=== PATIENT | female | born 1945 | race Asian ===

== ENCOUNTER 2017-01-30 12:12 | Inpatient (IN) | payer OTHER ==
--- NOTE | 2017-01-30 12:30 | PDOC ---
Attending Attestation - HPI HPI: 01/30/17 13:12 71 year old female, with significant past medical history of Afib s/p ablation 10 years ago, who presents to the emergency room complaining of a fast heart beat and lightheadedness. She states that her pulse was in the 160s today, so she called Dr. Eastman who advised her to come into the ED. She notes that she experienced 1 syncopal episode, 3 days ago, where she became lightheaded and fell to the floor. Her was able to arouse her. Denies lightheadedness, dizziness, chest pain prior to or after the fall. Pt explains that she started seeing an non emergency services ambulance driver, Dr. Russ, 8 months ago who started her on Digoxin. When her pulse is low and she feels dizzy, the patient skips her digoxin dose. Denies chest pain, SOB. Denies fever, chills, nausea, vomiting. Ramp Service Man: Dr. Eastman Patient used Dr. Gunter as PMD, who is now retired. All of Dr. Gunter's patients are now seen by Dr. Gil. <Diana Chahal - Last Filed: 01/30/17 13:12> - Resident Resident Name: Jean Carlos Rivera - ED Attending Attestation I have performed the following: I have examined & evaluated the patient, The case was reviewed & discussed with the resident, I agree w/resident's findings & plan, Exceptions are as noted - Physicial Exam PE: GENERAL: Awake, alert, and fully oriented, in no acute distress HEAD: No signs of trauma EYES: PERRLA, EOMI, sclera anicteric, conjunctiva clear ENT: Auricles normal inspection, hearing grossly normal, nares patent, oropharynx clear without exudates. Moist mucosa NECK: Normal ROM, supple, no lymphadenopathy, JVD, or masses LUNGS: Breath sounds equal, clear to auscultation bilaterally. No wheezes, and no crackles HEART: Tachycardic, irregularly irregular. Normal S1 and S2. ABDOMEN: Soft, nontender, normoactive bowel sounds. No guarding, no rebound. No masses EXTREMITIES: Normal range of motion, no edema. No clubbing or cyanosis. No cords, erythema, or tenderness NEUROLOGICAL: Cranial nerves II through XII grossly intact. Normal speech, normal gait SKIN: Warm, Dry, normal turgor, no rashes or lesions noted. - Medical Decision Making 01/30/17 16:19 Case d/w Dr. Green, covering Dr. Shah. Patient sent by Dr. Eastman for history of afib, on digoxin, but has missed doses due to bradycardia. HR was as low as 30s at home measured by patient, and up to 170 today. Responded to digoxin well in ED. <Sheila Calloway - Last Filed: 01/30/17 16:42>
--- NOTE | 2017-01-30 12:43 | PDOC ---
History of Present Illness <Sheila Calloway - Last Filed: 01/30/17 16:17> <Radha Alejandre - Last Filed: 01/30/17 18:16> - General History Source: Patient Exam Limitations: No Limitations - History of Present Illness Initial Comments: Patient is a 71 year old female with history of afib, MVP, RA and CHF on Warfarin, metoprolol, digoxin and lasix presenting with tachycardia and dizziness. Patient skipped digoxin yesterday and today due to low pulse rate yesterday (58) and dizziness today. Patient's pulse increased to 160+ and Dr Eastman requested admission to [facility] with consult to Dr. Moreira. Patient states that on the way to the hospital her heart rate temporarily decreased to the 30s and then returned to the 160s. Patient has a 10+ history of rhythm controlled afib with a failed ablation 10 years ago. Patient was started on digoxin one year ago and has has been tolerating it well but recently has started having dizziness and low pulse rates resulting in skipped doses. Endorses losing consciousness 3 days ago. Denies headache, fever, chills , shortness of breath, chest pain, abdominal pain. Denies feeling dizzy in ED. PCP: Dr. Gunter Cardio: Dr. Eastman, Usha EP: Dr. Russ <Jean Carlos Rivera - Last Filed: 02/04/17 02:31> - General Chief Complaint: Lightheaded Stated Complaint: RAPID HEARTBEAT Time Seen by Provider: 01/30/17 12:27 Past History <Sheila Calloway - Last Filed: 01/30/17 16:17> <Radha Alejandre - Last Filed: 01/30/17 18:16> - Past Medical History Anemia: No Asthma: No Cancer: No Cardiac Disorders: Yes (mitral stenosis,a.f.) CVA: No COPD: No CHF: No Dementia: No Diabetes: No GI Disorders: No Disorders: No HTN: No Hypercholesterolemia: No Liver Disease: No Seizures: No Thyroid Disease: No - Surgical History Cholecystectomy: Yes - Suicide/Smoking/Psychosocial Hx Smoking Status: No Smoking History: Never smoked Have you smoked in the past 12 months: No Number of Cigarettes Smoked Daily: 0 Information on smoking cessation initiated: No Hx Alcohol Use: No Drug/Substance Use Hx: No Substance Use Type: None Hx Substance Use Treatment: No <Jean Carlos Rivera - Last Filed: 02/04/17 02:31> - Past Medical History Allergies/Adverse Reactions: Allergies Allergy/AdvReac Type Severity Reaction Status Date / Time No Known Drug Allergies Allergy Verified 01/30/17 12:18 Home Medications: Ambulatory Orders Folic Acid - 1 mg PO DAILY #0 tablet 02/01/12 Metoprolol Succinate [Toprol XL -] 100 mg PO BID #0 tab.sr.24h 02/01/12 Digoxin 250 mcg PO Q48H 01/30/17 Digoxin [Lanoxin] 125 mcg PO Q48H 01/30/17 Furosemide [Lasix -] 20 mg PO DAILY 01/30/17 Losartan Potassium [Cozaar -] 75 mg PO DAILY 01/30/17 Methotrexate Sodium [Methotrexate] 9 tab PO WEEKLY 01/30/17 Sulfasalazine [Sulfasalazine Dr] 500 mg PO BID 01/30/17 Travoprost [Travatan Z] 2.5 ml OP DAILY 01/30/17 Warfarin Na [Coumadin] 2.5 mg PO DAILY 01/30/17 Review of Systems - Review of Systems Able to Perform ROS?: Yes Comments:: GEN: Denies fever, chills; Endorses URI last month HEENTM: Denies sore throat, Changes in vision, Changes in hearing Respiratory: Denies Cough, Shortness of Breath Cardiac: Denies Chest Pain; Endorses Syncope 3 days ago and presyncope today ABD/GI: Denies Abdominal Pain, Nausea, Vomiting, Diarrhea, Constipation : Denies Dysuria Musculoskeletal: Denies muscle or joint pain Integumentary: Denies diaphoresis, rashes, bruises Neurological: Endorses NIEVES, dizziness; Denies weakness All Other Systems Reviewed and Negative Is the patient limited Maltese proficient: No <Jean Carlos Rivera - Last Filed: 02/04/17 02:31> *Physical Exam - Vital Signs Last Vital Signs Temp Pulse Resp BP Pulse Ox 97.8 F 105 H 18 125/76 100 01/30/17 12:16 01/30/17 14:13 01/30/17 14:13 01/30/17 14:13 01/30/17 14:13 <Sheila Calloway - Last Filed: 01/30/17 16:17> - Vital Signs Last Vital Signs Temp Pulse Resp BP Pulse Ox 97.8 F 84 14 124/91 98 01/30/17 12:16 01/30/17 17:15 01/30/17 17:15 01/30/17 17:15 01/30/17 17:15 <Radha Alejandre - Last Filed: 01/30/17 18:16> - Vital Signs Last Vital Signs Temp Pulse Resp BP Pulse Ox 97.8 F 130 H 18 133/87 100 01/30/17 12:16 01/30/17 12:16 01/30/17 12:16 01/30/17 12:16 01/30/17 12:16 - Physical Exam Comments: GENERAL: Nourished, Appropriately dressed, AAOx3, NAD HEAD: NCAT EYES: PERRLA, EOMI, sclera anicteric, mild conjunctival injections R>L ENT: hearing grossly normal, nares patent, no congestion NECK: Supple, Normal ROM, no LAD, JVD, or masses RESP: Speaking in full sentences, Symmetrical chest expansion, no respiratory distress, lungs CTAB HEART: tachycardic with an irregular rhythm, normal S1-S2, no MRG, peripheral pulses equal b/l ABDOMEN: Soft, NTND, no guarding, no rebound. EXTREMITIES: Normal inspection, Normal ROM NEUROLOGICAL: CN II-XII grossly intact. Normal speech, no focal sensorimotor deficits SKIN: Warm, Dry, normal turgor, no rashes or lesions noted. <Jean Carlos Rivera - Last Filed: 02/04/17 02:31> ED Treatment Course - LABORATORY CBC & Chemistry Diagram: 01/30/17 13:40 01/30/17 13:40 - ADDITIONAL ORDERS Additional order review: Laboratory Results 01/30/17 01/30/17 13:40 13:40 PT with INR 28.80 H INR 2.55 H Sodium 142 Potassium 4.7 Chloride 105 Carbon Dioxide 29 Anion Gap 8 BUN 12 Creatinine 0.7 Creat Clearance w eGFR > 60 Random Glucose 83 Calcium 9.7 Total Bilirubin 0.6 AST 34 D ALT 33 D Alkaline Phosphatase 83 Creatine Kinase 118 Troponin I 0.04 Total Protein 8.3 H Albumin 4.3 Digoxin 0.2324 L 01/30/17 13:40 RBC 4.97 MCV 84.8 MCHC 31.4 L RDW 17.3 H MPV 8.4 - Medications Given in the ED: ED Medications Discontinued Medications Generic Name Dose Route Start Last Admin Trade Name Freq PRN Reason Stop Dose Admin Digoxin 0.5 mg 01/30/17 13:24 01/30/17 13:40 Lanoxin Injection - IVPUSH 01/30/17 13:25 0.5 mg ONCE ONE Administration <Sheila Calloway - Last Filed: 01/30/17 16:17> - LABORATORY CBC & Chemistry Diagram: 01/30/17 13:40 01/30/17 13:40 - ADDITIONAL ORDERS Additional order review: Laboratory Results 01/30/17 01/30/17 13:40 13:40 PT with INR 28.80 H INR 2.55 H Sodium 142 Potassium 4.7 Chloride 105 Carbon Dioxide 29 Anion Gap 8 BUN 12 Creatinine 0.7 Creat Clearance w eGFR > 60 Random Glucose 83 Calcium 9.7 Total Bilirubin 0.6 AST 34 D ALT 33 D Alkaline Phosphatase 83 Creatine Kinase 118 Troponin I 0.04 Total Protein 8.3 H Albumin 4.3 Digoxin 0.2324 L 01/30/17 13:40 RBC 4.97 MCV 84.8 MCHC 31.4 L RDW 17.3 H MPV 8.4 - Medications Given in the ED: ED Medications Discontinued Medications Generic Name Dose Route Start Last Admin Trade Name Freq PRN Reason Stop Dose Admin Digoxin 0.5 mg 01/30/17 13:24 01/30/17 13:40 Lanoxin Injection - IVPUSH 01/30/17 13:25 0.5 mg ONCE ONE Administration <Radha Alejandre - Last Filed: 01/30/17 18:16> - LABORATORY CBC & Chemistry Diagram: 02/03/17 05:18 02/03/17 05:18 <Jean Carlos Rivera - Last Filed: 02/04/17 02:31> Medical Decision Making - Medical Decision Making 01/30/17 18:16 Dr. Moreira was paged and notified via phone service. <Radha Alejandre - Last Filed: 01/30/17 18:16> - Medical Decision Making 71 year old female presenting with atrial fibrillation with rapid ventricular response. History of failed ablation 10 years ago. Recently been experiencing bradycardia and presyncope causing her to skip doses of digoxin doses. Today HR in the 160+ sent to ED for admission and cardiac evaluation. Ddx includes but is not limited to worsening afib, CHF, sub therapeutic drug levels, SSS/tachycardia-bradycardia syndrome. Plan EKG, CXR Rate control CBC, CMP Coagulation Profile Cardiac enzymes digoxin level +/- admission Consult cardiology (Lillie) Monitor and reassess EKG: flutter waves with rapid and variable ventricular response (150), alternating 3:1 and 2:1 01/30/17 13:18 Patient refusing Diltiazem. states her pulse normally drops and she doesn't want to take any medication. Agrees to receiving her dose of Digoxin. Patient given a digoxin loading dose of 0.5 mg 01/30/17 13:42 Patient responded well to Digoxin. HR down to 100 with 3:1 conduction of flutter waves, BP: 121/90 01/30/17 14:08 CBC WBC 6.9 K/mm3 (4.0-10.0) 01/30/17 13:40 RBC 4.97 M/mm3 (3.60-5.2) 01/30/17 13:40 Hgb 13.2 GM/dL (10.7-15.3) 01/30/17 13:40 Hct 42.1 % (32.4-45.2) 01/30/17 13:40 MCV 84.8 fl (80-96) 01/30/17 13:40 MCH 26.6 pg (25.7-33.7) 01/30/17 13:40 MCHC 31.4 g/dl (32.0-36.0) L 01/30/17 13:40 RDW 17.3 % (11.6-15.6) H 01/30/17 13:40 Plt Count 251 K/MM3 (134-434) 01/30/17 13:40 MPV 8.4 fl (7.5-11.1) 01/30/17 13:40 Reviewed, Grossly within normal limits. 01/30/17 14:37 CMP Sodium 142 mmol/L (136-145) 01/30/17 13:40 Potassium 4.7 mmol/L (3.5-5.1) 01/30/17 13:40 Chloride 105 mmol/L (98-107) 01/30/17 13:40 Carbon Dioxide 29 mmol/L (21-32) 01/30/17 13:40 Anion Gap 8 (8-16) 01/30/17 13:40 BUN 12 mg/dL (7-18) 01/30/17 13:40 Creatinine 0.7 mg/dL (0.55-1.02) 01/30/17 13:40 Creat Clearance w eGFR > 60 (>60) 01/30/17 13:40 Random Glucose 83 mg/dL (74-106) 01/30/17 13:40 Calcium 9.7 mg/dL (8.5-10.1) 01/30/17 13:40 Total Bilirubin 0.6 mg/dL (0.2-1.0) 01/30/17 13:40 AST 34 U/L (15-37) D 01/30/17 13:40 ALT 33 U/L (12-78) D 01/30/17 13:40 Alkaline Phosphatase 83 U/L (45-117) 01/30/17 13:40 Creatine Kinase 118 IU/L (26-192) 01/30/17 13:40 Troponin I 0.04 ng/ml (0.00-0.05) 01/30/17 13:40 Total Protein 8.3 g/dl (6.4-8.2) H 01/30/17 13:40 Albumin 4.3 g/dl (3.4-5.0) 01/30/17 13:40 Reviewed, Grossly within normal limits. Troponin(-) 01/30/17 14:42 Laboratory Tests 01/30/17 13:40 Digoxin 0.2324 L Subtherapeutic digoxin level consistent with skipped doses 01/30/17 14:47 Laboratory Tests 01/30/17 13:40 PT with INR 28.80 H INR 2.55 H Therapeutic INR. 01/30/17 15:[address] Moreira regarding patient. He requested admission to Tele Obs for evaluation for Thacy/Manpreet - Put consult in for Dr. Eastman so he will be alerted. 01/30/17 15:08 Put in call to Dr. Gil ([phone]) requesting callback 01/30/17 16:21 Dr. Calloway spoke with Dr. Green (covering for Dr. Gil) who accepted admission. Patient admitted by Dr. Calloway. 01/30/17 18:10 Patient had a 7-8s pause in her heart beat followed by a 2 second pause and then resumed the previous rhythm Patient complained that she became dizzy External pads were placed Put in a call to Dr. Moreira Spoke with Dr. Jones who agreed with placing pads and reqyuested admission to ICU Dr. Jones called back, he feels this was an isolated event but may request patient tranfer to tertiary hospital with a dedicated CICU He is going to discuss with Dr. Eastman and call back <Jean Carlos Rivrea - Last Filed: 02/04/17 02:31> *DC/Admit/Observation/Transfer - Discharge Dispostion Admit: Yes <Sheila Calloway - Last Filed: 01/30/17 16:17> <Radha Alejandre - Last Filed: 01/30/17 18:16> <Jean Carlos Rivera - Last Filed: 02/04/17 02:31> Diagnosis at time of Disposition: Atrial fibrillation and flutter - Discharge Dispostion Condition at time of disposition: Stable - Referrals
[2017-01-30] MEDS ORDERED: dilTIAZem HCL 125 MG/25 ML - 25 ML VIAL ONE (13:09)
[2017-01-30] MEDS ORDERED: DIGOXIN 0.5 MG/2 ML AMPUL IVPUSH ONE (13:24)
[2017-01-30] MEDS ORDERED: DIGOXIN 0.5 MG/2 ML AMPUL ONE (13:27)
[2017-01-30 13:51] LABS: MCH 26.6 pg (25.7-33.7); MCHC 31.4 g/dl (32.0-36.0); MEAN CELL VOLUME 84.8 fl (80-96); MEAN PLT VOLUME 8.4 fl (7.5-11.1); PLATELET COUNT 251 K/MM3 (134-434); RDW 17.3 % (11.6-15.6); WHITE BLOOD COUNT 6.9 K/mm3 (4.0-10.0)
[2017-01-30 14:13] LABS: INR 2.55 (0.82-1.09); PROTHROMBIN TIME (PATIENT) 28.8 SEC (9.98-11.88)
[2017-01-30 14:17] LABS: ALBUMIN 4.3 g/dl (3.4-5.0); ANION GAP 8 (8-16); BILIRUBIN,TOTAL 0.6 mg/dL (0.2-1.0); CALCIUM 9.7 mg/dL (8.5-10.1); CO2 29 mmol/L (21-32); CREATININE 0.7 mg/dL (0.55-1.02); GLUCOSE,RANDOM 83 mg/dL (74-106); SGOT/AST 34 U/L (15-37); SGPT/ALT 33 U/L (12-78); TOT PROT 8.3 g/dl (6.4-8.2)
[2017-01-30 14:29] LABS: ALK PHOS 83 U/L (45-117); CPK 118 IU/L (26-192); DIGOXIN LEVEL 0.2324 ng/ml (0.8-2.0); TROPONIN I 0.04 ng/ml (0.00-0.05)
--- NOTE | 2017-01-30 20:01 | CON.CARD ---
Cardiology Consult (text) - Consultation Consultation Note: Consult for Dr. 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 Admit to ICU for continued telemetry. 2. Transcutaneous PPM if needed, atropine at bedside 3. Echo 4. TSH 5. EP consultation with Dr. Benitez 6. If patient continues to have pauses > 4.5 seconds or if repeated pauses >3 seconds, can transfer to CCU at [facility] Above d/w Dr. Orourke and patient.
[2017-01-30 21:02] VITALS: BMI 23.1
[2017-01-30] MEDS ORDERED: PNEUMOC 13-VAL CONJ-DIP CRM/PF 0.5 ML DISP.SYRIN IM ONE (21:02)
[2017-01-30] MEDS ORDERED: FLU VACCINE QUAD 60 MCG/0.5 ML (MDV 17-18) IM ONE (21:02)
--- NOTE | 2017-01-30 22:56 | CONSULT ---
Consult - text type - Consultation Consultation Note: PULM/CCM Pt seen and examined in the ICU CC: dizziness HPI: Briefly Ms Narayanan is a 71 year old female, with past medical history significant for Afib s/p failed ablation 10 years ago, now on Digoxin and anticoagulation, who presented to the emergency room complaining of a fast heart beat and lightheadedness. Relates that her pulse was in the 160s today, so she called Dr. Eastman ---> ED. Also relates she had 1 syncopal episode w/ o associated chest pain, 3 days ago, where she became lightheaded and fell to the floor, she was not seen at that time. Had no complaints after event. . Pt explains that she started seeing an hybrid car mechanic, Dr. Russ, 8 months ago who started her on Digoxin. States that she skipped dose of digoin because pulse has been low and the above events. Currently denies chest pain, SOB. Denies fever, chills, nausea, vomiting. In ED normothermic, normotensive. 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 Pacer pad placed. Atropine to be at bedside. Plan to adjust meds as necessary in am. On arrival in ICU awake, alert, hemodynamcially stable, no complaints. Pt remains in Afib with HR 58-74. No further pauses. - Past Medical History Anemia: No Asthma: No Cancer: No Cardiac Disorders: Yes (mitral stenosis,a.f.) CVA: No COPD: No CHF: No Dementia: No Diabetes: No GI Disorders: No Disorders: No HTN: No Hypercholesterolemia: No Liver Disease: No Seizures: No Thyroid Disease: No - Surgical History Cholecystectomy: Yes - Suicide/Smoking/Psychosocial Hx Smoking Status: No Smoking History: Never smoked Have you smoked in the past 12 months: No Number of Cigarettes Smoked Daily: 0 Information on smoking cessation initiated: No Hx Alcohol Use: No Drug/Substance Use Hx: No Substance Use Type: None Hx Substance Use Treatment: No <Jean Carlos Rivera - Last Filed: 01/30/17 19:15> - Past Medical History Allergies/Adverse Reactions: Allergies Allergy/AdvReac Type Severity Reaction Status Date / Time No Known Drug Allergies Allergy Verified 01/30/17 12:18 Home Medications: Ambulatory Orders Folic Acid - 1 mg PO DAILY #0 tablet 02/01/12 Metoprolol Succinate [Toprol XL -] 100 mg PO BID #0 tab.sr.24h 02/01/12 Digoxin 250 mcg PO Q48H 01/30/17 Digoxin [Lanoxin] 125 mcg PO Q48H 01/30/17 Furosemide [Lasix -] 20 mg PO DAILY 01/30/17 Losartan Potassium [Cozaar -] 75 mg PO DAILY 01/30/17 Methotrexate Sodium [Methotrexate] 9 tab PO WEEKLY 01/30/17 Sulfasalazine [Sulfas[address] Dr] 500 mg PO BID 01/30/17 Travoprost [Travatan Z] 2.5 ml OP DAILY 01/30/17 Warfarin Na [Coumadin] 2.5 mg PO DAILY 01/30/17 Review of Systems - Review of Systems Able to Perform ROS?: Yes Comments:: GEN: Denies fever, chills; Endorses URI last month HEENTM: Denies sore throat, Changes in vision, Changes in hearing Respiratory: Denies Cough, Shortness of Breath Cardiac: Denies Chest Pain; Endorses Syncope 3 days ago and presyncope today ABD/GI: Denies Abdominal Pain, Nausea, Vomiting, Diarrhea, Constipation : Denies Dysuria Musculoskeletal: Denies muscle or joint pain Integumentary: Denies diaphoresis, rashes, bruises Neurological: Endorses NIEVES, dizziness; Denies weakness as per HPI All Other Systems Reviewed and Negative 01/30/17 13:40 01/30/17 13:40 INR, PTT INR 2.55 (0.82-1.09) H 01/30/17 13:40 Dig o.2 A/P 71 y/o woman chronic afib on dig, presents with afib RVR, low dig level, received 0.5 of dig in ED had brief pauses without hemodyamic changes now rate controlled without current symptoms P/ - Admit to ICU for continued telemetry. - Transcutaneous PPM if needed, atropine at bedside -TTE -check TSH, replete electrolytes - to have EP consultation with Dr. Benitez - TCP and transfer to tertiary if becomes unstable - heparin gtt or restart coumadin when INR < 2.5 -if stable overnight tele in am -cardiac diet -scd, no indication for GI prophy Armand Charlotte ACNP [id number]
--- NOTE | 2017-01-31 08:46 | PN ---
Progress Note (short form) - Note Progress Note: Patient seen and examined in the ICU. Awake and alert. No CP or SOB. No recurrent pauses. Intake & Output 01/28/17 01/29/17 01/30/17 01/31/17 23:59 23:59 23:59 23:59 Intake Total 240 Balance 240 Weight 126 lb 12.8 oz 126 lb 8 oz Last Vital Signs Temp Pulse Resp BP Pulse Ox 98.1 F 65 15 128/89 98 01/31/17 02:00 01/31/17 02:00 01/31/17 02:00 01/31/17 02:00 01/30/17 21:00 GENERAL: Awake, alert, and fully oriented, in no acute distress HEAD: No signs of trauma EYES: PERRLA, EOMI, sclera anicteric, conjunctiva clear ENT: hearing grossly normal, nares patent, oropharynx clear without exudates. Moist mucosa NECK: Normal ROM, supple, no lymphadenopathy, JVD, or masses LUNGS: Breath sounds equal, clear to auscultation bilaterally. No wheezes, and no crackles HEART: Tachycardic, irregularly irregular. Normal S1 and S2. ABDOMEN: Soft, nontender, normoactive bowel sounds. No guarding, no rebound. No masses EXTREMITIES: Normal range of motion, no edema. No clubbing or cyanosis. No cords, erythema, or tenderness NEUROLOGICAL: Cranial nerves II through XII grossly intact. Normal speech, normal gait SKIN: Warm, Dry, normal turgor, no rashes or lesions noted. Laboratory Results - last 24 hr 01/30/17 01/30/17 01/30/17 13:40 13:40 13:40 WBC 6.9 RBC 4.97 Hgb 13.2 Hct 42.1 MCV 84.8 MCH 26.6 MCHC 31.4 L RDW 17.3 H Plt Count 251 MPV 8.4 PT with INR 28.80 H INR 2.55 H Sodium 142 Potassium 4.7 Chloride 105 Carbon Dioxide 29 Anion Gap 8 BUN 12 Creatinine 0.7 Creat Clearance w eGFR > 60 Random Glucose 83 Calcium 9.7 Total Bilirubin 0.6 AST 34 D ALT 33 D Alkaline Phosphatase 83 Creatine Kinase 118 Troponin I 0.04 Total Protein 8.3 H Albumin 4.3 TSH Digoxin 0.2324 L 01/31/17 05:10 WBC RBC Hgb Hct MCV MCH MCHC RDW Plt Count MPV PT with INR INR Sodium Potassium Chloride Carbon Dioxide Anion Gap BUN Creatinine Creat Clearance w eGFR Random Glucose Calcium Total Bilirubin AST ALT Alkaline Phosphatase Creatine Kinase Troponin I Total Protein Albumin TSH 7.02 H D Digoxin IMP: 7 seconds pause Chronic AFib R/O OSAS Monitor HR O2 as needed May benefit from sleep screen Transcutaneous PPM if needed, atropine at bedside Dr Sparrow
--- NOTE | 2017-01-31 08:53 | PN ---
Progress Note, Physician Chief Complaint: Alert and oriented, no distress TELE: AF with average rates 90-115. Rare short spikes to 130s, no pauses > 3 seconds overnight TSH is 7 - Objective Vital Signs: Vital Signs Temperature 98.1 F 01/31/17 02:00 Pulse Rate 65 01/31/17 02:00 Respiratory Rate 15 01/31/17 02:00 Blood Pressure 128/89 01/31/17 02:00 O2 Sat by Pulse Oximetry (%) 98 01/30/17 21:00 Constitutional: Yes: No Distress Eyes: Yes: Conjunctiva Clear Cardiovascular: Yes: Pulse Irregular Respiratory: Yes: CTA Bilaterally Gastrointestinal: Yes: Soft Edema: No Neurological: Yes: Alert ...Motor Strength: WNL Labs: INR, PTT INR 2.55 (0.82-1.09) H 01/30/17 13:40 Laboratory Tests 01/30/17 01/31/17 13:40 05:10 WBC 6.9 Hgb 13.2 Plt Count 251 TSH 7.02 H D - ....Imaging EKG: Image Reviewed Assessment/Plan IMP: Chronic AF on AC, s/p failed ablation 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 Continue tele in ICU 2. Transcutaneous pacer attached, not required overnight. 3. Address thyroid status 4. Echo in AM 5. EP evaluation ordered, may need PPM.
--- NOTE | 2017-01-31 09:21 | CONS ---
DATE OF CONSULTATION: 01/30/2017 COVERAGE FOR: Giovani Eastman MD REQUESTED BY: ER physician, Dr. Calloway, for atrial fibrillation with rapid ventricular response. The patient is a 71-year-old woman with a past medical history of chronic hypertension, chronic atrial fibrillation, status post failed ablation, maintained on Coumadin, rheumatoid arthritis who presents to the emergency room for evaluation of elevated heart rate. The patient's history of present illness begins around January 27, when she began to feel occasional lightheadedness and describes an episode of presyncope at home. She also describes low heart rates in the morning-time, ranging from 50 to 60 beats/min, which prompted her to hold her digoxin for 2 days. 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 She had recently seen Electrophysiology and started on digoxin several months ago, which she reports initially provided much better control of her atrial fibrillation. Previously, she was on metoprolol alone, which was not effective as monotherapy, according to her. Today, she also felt lightheaded and dizzy this morning and her home pulse reading was transiently in the 30s. Initially in the ER, she was found to be in atrial fibrillation with rapid ventricular response and was given digoxin 0.5 mg IV x1 dose after her digoxin level was found to be low. By ER report, after a period of time, she developed a 7-second pause, followed by atrial fibrillation again with rapid ventricular response. I was called to evaluate her after the pause. I came to the ER to evaluate the patient, where she was seen and examined and was in no acute distress, alert and oriented. Heart rate currently ranging between 90 and 115 beats/min with no pauses during my examination. She denies chest pain, shortness of breath. She does have palpitations and occasional lightheadedness, as described above. She had 1 episode of presyncope on January 27. She denies edema or heart failure symptoms. She denies history of myocardial infarction or previous revascularization. PAST MEDICAL/SURGICAL HISTORY: Previous , rheumatoid arthritis, hypertension. She has no known drug allergies. HOME MEDICATIONS: Digoxin 0.25 daily; warfarin 2.5 daily; Travatan; sulfasalazine; Toprol-XL 100 b.i.d.; methotrexate; Cozaar 75 mg daily; Lasix 20 mg daily; folic acid. FAMILY HISTORY: No early CAD or sudden cardiac . SOCIAL HISTORY: She lives with . Nonsmoker. 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 PHYSICAL EXAMINATION: General: Alert and oriented. Vital Signs: Temperature 97.8, pulse 104 in atrial fibrillation, blood pressure 138/79, O2 saturation 99 on room air. HEENT: Anicteric. Neck: No bruits, no JVD. Heart: S1, S2, irregular. No murmurs. Chest: Clear. No rales. Abdomen: Soft. Extremities: No edema. Chest x-ray showed no infiltrate. EKG showed atrial flutter at 122 beats/min. CBC: White count 6.9, hematocrit 42.1, platelets 251. INR 2.55. Sodium 142, potassium 4.7, creatinine 0.7. LFTs normal. Toxicology screen, digoxin level was 0.2. IMPRESSION: 1. Chronic atrial fibrillation, on anticoagulation, status post failed ablation. 2. Suspected tachycardia/bradycardia syndrome. 3. A 7-second pause after receiving intravenous digoxin 0.5 mg. RECOMMENDATIONS: 1. Admit to ICU for continued telemetry. 2. Would allow heart rate to run slightly elevated overnight and use small doses of Lopressor as needed. 3. Transcutaneous pacemaker if needed, atropine at bedside. 4. Echocardiogram. 5. Check TSH. 6. EP consultation with Dr. Patrick Benitez for probable/possible pacemaker on Wednesday. 7. If the patient continues to have pauses greater than 4.5 seconds or if repeated pauses greater than 3 seconds and symptomatic, can transfer to a CCU setting at [facility] on an emergent basis. Above plan was discussed with her primary canvas products sales representative, Dr. Orourke/Dr. Eastman, and with the patient. Thank you for the consultation. KESHAWN GARIBAY M.D. [id number]
--- NOTE | 2017-01-31 11:05 | EKG ---
Test Reason : Blood Pressure : / mmHG Vent. Rate : 122 BPM Atrial Rate : 317 BPM P-R Int : 000 ms QRS Dur : 084 ms QT Int : 298 ms P-R-T Axes : 000 031 192 degrees QTc Int : 424 ms ATRIAL FLUTTER WITH VARIABLE A-V BLOCK ABNORMAL ECG WHEN COMPARED WITH ECG OF 30-JAN-2012 09:56, ATRIAL FLUTTER HAS REPLACED ATRIAL FIBRILLATION INVERTED T WAVES HAVE REPLACED NONSPECIFIC T WAVE ABNORMALITY IN LATERAL LEADS Confirmed by KESHAWN GARIBAY MD ([id number]) on 01/31/2017 11:05:24 AM Referred By: Confirmed By:KESHAWN GARIBAY MD
[2017-01-31] MEDS ORDERED: ACETAMINOPHEN 325 MG TABLET (FP) PO PRN (11:07)
--- NOTE | 2017-01-31 11:11 | HP ---
Admitting History and Physical - Primary Care Physician PCP: Jia Shah - Admission History of Present Illness: Patient is a 71 year old female with history of afib, MVP, RA and CHF on Warfarin, metoprolol, digoxin and lasix presenting with tachycardia and dizziness. Patient skipped digoxin yesterday and today due to low pulse rate yesterday (58) and dizziness today. Patient's pulse increased to 160+ and Dr Eastman requested admission to tele with consult to Dr. Moreira. Patient has a 10+ history of rhythm controlled afib with a failed ablation 10 years ago. Patient was started on digoxin one year ago and has has been tolerating it well but recently has started having dizziness and low pulse rates resulting in skipped doses. Denies headache, fever, chills, shortness of breath, chest pain, abdominal pain. Denies feeling dizzy in ED. PCP: Dr. Gunter Cardio: Dr. Raiaz V EP: Dr. Russ pt devoled > 7 sec pause after getting digoxin in er pt admitted to icu case discussed with er physician last night chart reviewed pt seen / examined in icu today at bedside pt at present comfotable denies cp/sob. concerned about hrate no abd pain. denies fever/ chills denies headche/ dizziness no u/b trouble History Source: Patient, Family Member Limitations to Obtaining History: No Limitations - Past Medical History ...: No - Smoking History Smoking history: Never smoked Have you smoked in the past 12 months: No Aproximately how many cigarettes per day: 0 - Alcohol/Substance Use Hx Alcohol Use: No Home Medications - Allergies Allergies/Adverse Reactions: Allergies Allergy/AdvReac Type Severity Reaction Status Date / Time No Known Drug Allergies Allergy Verified 01/30/17 12:18 - Home Medications Home Medications: Ambulatory Orders Folic Acid - 1 mg PO DAILY #0 tablet 02/01/12 Metoprolol Succinate [Toprol XL -] 100 mg PO BID #0 tab.sr.24h 02/01/12 Digoxin 250 mcg PO Q48H 01/30/17 Digoxin [Lanoxin] 125 mcg PO Q48H 01/30/17 Furosemide [Lasix -] 20 mg PO DAILY 01/30/17 Losartan Potassium [Cozaar -] 75 mg PO DAILY 01/30/17 Methotrexate Sodium [Methotrexate] 9 tab PO WEEKLY 01/30/17 Sulfasalazine [Sulfas[address]azine Dr] 500 mg PO BID 01/30/17 Travoprost [Travatan Z] 2.5 ml OP DAILY 01/30/17 Warfarin Na [Coumadin] 2.5 mg PO DAILY 01/30/17 Family Disease History - Family Disease History Family History: Unremarkable Review of Systems Findings/Remarks: see [place] Physical Examination Vital Signs: Vital Signs Temperature 98 F 01/31/17 10:57 Pulse Rate 84 01/31/17 10:57 Respiratory Rate 21 01/31/17 10:57 Blood Pressure 120/61 01/31/17 10:57 O2 Sat by Pulse Oximetry (%) 98 01/30/17 21:00 Constitutional: Yes: No Distress, Calm Eyes: Yes: Conjunctiva Clear HENT: Yes: WNL Neck: Yes: Supple Cardiovascular: Yes: Pulse Irregular Respiratory: Yes: CTA Bilaterally Gastrointestinal: Yes: Normal Bowel Sounds, Soft Edema: No Neurological: Yes: WNL Psychiatric: Yes: Alert Imaging - Results Chest X-ray: Report Reviewed EKG: Report Reviewed Problem List - Problems (1) Atrial fibrillation and flutter Code(s): I48.91 - UNSPECIFIED ATRIAL FIBRILLATION I48.92 - UNSPECIFIED ATRIAL FLUTTER (2) Rheumatoid arteritis Code(s): I00 - RHEUMATIC FEVER WITHOUT HEART INVOLVEMENT (3) HTN (hypertension) Code(s): I10 - ESSENTIAL (PRIMARY) HYPERTENSION (4) Glaucoma Code(s): H40.9 - UNSPECIFIED GLAUCOMA (5) Tachy-deandre syndrome Code(s): I49.5 - SICK SINUS SYNDROME Assessment/Plan Discussed in detail with pt/ continue close monitoring in icu. cardiology consult noted/ appreciated rmeds reviewed hold b tunde for now will follow cc time [address] Green-- Coverage Dr. Gil.
[2017-01-31] MEDS: WARFARIN NA 2.5 MG TABLET (FP) PO SCH (17:55)
[2017-01-31] MEDS: LATANOPROST 0.005% OPHTH SOLN 2.5ML BOTTLE OU SCH (21:10)
[2017-01-31] MEDS: MUPIROCIN 2% TOPICAL OINTMENT FOR DECOLONIZATION NS SCH (21:11)
[2017-01-31] MEDS: CHLORHEXIDINE GLUCONATE 4% CLEANSER FOR DECOLONIZATION TP SCH (21:14)
[2017-02-01 06:02] LABS: BASOPHIL 0.8 % (0-2.0); EOSINOPHIL 1.5 % (0-4.5); MCH 27.4 pg (25.7-33.7); MCHC 32.6 g/dl (32.0-36.0); MEAN PLT VOLUME 8.4 fl (7.5-11.1); NEUTROPHILS 48.7 % (42.8-82.8); PLATELET COUNT 245 K/MM3 (134-434); WHITE BLOOD COUNT 6.5 K/mm3 (4.0-10.0)
[2017-02-01 06:10] LABS: INR 1.65 (0.82-1.09); PROTHROMBIN TIME (PATIENT) 18.6 SEC (9.98-11.88)
[2017-02-01 06:38] LABS: ALBUMIN 3.5 g/dl (3.4-5.0); ANION GAP 7 (8-16); CALCIUM 8.8 mg/dL (8.5-10.1); CO2 30 mmol/L (21-32); CREATININE 0.6 mg/dL (0.55-1.02); GLUCOSE,RANDOM 84 mg/dL (74-106); SGOT/AST 20 U/L (15-37); SGPT/ALT 24 U/L (12-78)
[2017-02-01 06:40] LABS: ALK PHOS 69 U/L (45-117); BILIRUBIN,TOTAL 0.7 mg/dL (0.2-1.0)
--- NOTE | 2017-02-01 07:16 | PN ---
Physical Exam: SUBJECTIVE: Patient seen and examined by me this AM - No major overnight events. Pt denies CP, NIEVES/vision changes, fever/chills, dyspnea, N/V, LE edema. Endorses palpitations and SOB overnight when woken up by nursing staff. However, no other complaints. - Pt intermittently tachy to 140s systolic in AM, w/ persistent Afib/Aflutter. - Pt started on Heparin gtt given subtherapeutic INR (1.65). Toprol xl restarted per her medical lab technician, Dr. Eastman OBJECTIVE: Vital Signs Intake & Output 01/29/17 01/30/17 01/31/17 02/01/17 23:59 23:59 23:59 23:59 Intake Total 940 200 Balance 940 200 Weight 57.516 kg 57.379 kg 57.107 kg Period Temp Pulse Resp BP Sys/Frazier Pulse Ox Last 24 Hr 97.7 F-98.6 F 67-92 18-22 111-133/56-82 GENERAL: The patient is awake, alert, and fully oriented, in no acute distress. HEAD: Normal with no signs of trauma. EYES: PERRL, extraocular movements intact, sclera anicteric, conjunctiva clear. No ptosis. ENT: Ears normal, nares patent, oropharynx clear without exudates, moist mucous membranes. NECK: Trachea midline, supple. LUNGS: Breath sounds equal, clear to auscultation bilaterally, no wheezes, no crackles, no accessory muscle use. HEART: Tachcardic, irregularly irregular, S1, S2 without murmur, rub or gallop. ABDOMEN: Soft, nontender, nondistended, normoactive bowel sounds, no guarding, no rebound, no hepatosplenomegaly, no masses. EXTREMITIES: 2+ pulses, warm, well-perfused, no edema. NEUROLOGICAL: Cranial nerves II through XII grossly intact. Normal speech, gait not observed. Laboratory Results - last 24 hr CBC, BMP 02/01/17 05:00 02/01/17 05:00 01/31/17 02/01/17 02/01/17 05:10 05:00 05:00 WBC 6.5 RBC 4.64 Hgb 12.7 Hct 38.9 MCV 84.0 MCH 27.4 MCHC 32.6 RDW 17.0 H Plt Count 245 MPV 8.4 Neutrophils % 48.7 D Lymphocytes % 40.1 H D Monocytes % 8.9 Eosinophils % 1.5 D Basophils % 0.8 PT with INR 18.60 H INR 1.65 H D Sodium Potassium Chloride Carbon Dioxide Anion Gap BUN Creatinine Creat Clearance w eGFR Random Glucose Calcium Magnesium Total Bilirubin AST ALT Alkaline Phosphatase Total Protein Albumin TSH 7.02 H D 02/01/17 05:00 WBC RBC Hgb Hct MCV MCH MCHC RDW Plt Count MPV Neutrophils % Lymphocytes % Monocytes % Eosinophils % Basophils % PT with INR INR Sodium 144 Potassium 4.8 Chloride 107 Carbon Dioxide 30 Anion Gap 7 L BUN 15 D Creatinine 0.6 Creat Clearance w eGFR > 60 Random Glucose 84 Calcium 8.8 Magnesium 2.0 Total Bilirubin 0.7 AST 20 D ALT 24 D Alkaline Phosphatase 69 Total Protein 7.0 Albumin 3.5 TSH Active Medications Generic Name Dose Route Start Last Admin Trade Name Freq PRN Reason Stop Dose Admin Acetaminophen 650 mg 01/31/17 11:07 Tylenol - PO Q6H PRN FEVER OR PAIN Chlorhexidine Gluconate 1 applic 01/31/17 22:00 01/31/17 21:14 Hibiclens For Decolonization - TP 1 applic HS JEANMARIE Administration Folic Acid 1 mg 02/01/17 10:00 Folic Acid - PO DAILY JEANMARIE Furosemide 20 mg 02/01/17 10:00 Lasix - PO DAILY JEANMARIE Latanoprost 1 drop 01/31/17 22:00 01/31/17 21:10 Xalatan 0.005% Eye Drops - OU 1 drop HS JEANMARIE Administration Losartan Potassium 75 mg 02/01/17 10:00 Cozaar - PO DAILY JEAMNARIE Methotrexate 22.5 mg 02/04/17 10:00 Mexate - PO Th@1000 JEANMARIE Mupirocin 1 applic 01/31/17 22:00 01/31/17 21:11 Bactroban Ointment (For Decolonization) - NS 02/05/17 21:59 1 applic BID JEANMARIE Administration Sulfasalazine 500 mg 01/31/17 22:00 01/31/17 21:15 Azulfidine En-Tabs - PO 500 mg BID JEANMARIE Administration Warfarin Sodium 2.5 mg 01/31/17 18:00 01/31/17 17:55 Coumadin - PO 2.5 mg DAILY@1800 JEANMARIE Administration No pending micro Recent Imaging: CXR (01/30) - No acute pathology. Clear lung reid. Slightly rotated. ASSESSMENT/PLAN: 71 yo womam pmh of afib, MVP, RA, CHF who presented w/ tachycardia and dizziness , admitted for close quality assurance monitor final after 7-second sinus pause after receiving digoxin in ED, still w/ persistent afib/aflutter. Pt is stable w/ persistent afib to 140s overnight, currently hemodynamically stable w/ intermittent palpations/SOB episodes. Plan to start heparin gtt given sub-Tx INR (2 days w/o dose) and continuation of BB for rate control per patient's medical lab technician, Dr. Eastman. No other active medical issues. Will continue cardiac monitoring in ICU. #Neuro -Monitor MS - Tylenol for pain #Cardiac - Toprol Xl 100mg BID PO - Hold digoxin in setting of bradycardia - Serial EKGs - Warfarin 2.5mg PO daily - Lasix 20 PO daily - Cardiac monitoring - Follow-up EPS #Pulm -O2 2L NC PRN. Titrate to >94% - Sleep study #Renal -Daily BMPs, monitor lytes - Monitor for dig toxicity #Heme - Heparin gtt - Warfarin 2.5 mg PO daily #Endo -TSH 7.0 - Consider synthroid - Endo consult #MSK - Methotrexate/sulfasalazine for RA #GI -Cardiac diet #FEN -Fluids: <2L free water PO -Electrolytes: Daily BMPs, Trend BUN/Cr -Nutrition: Cardiac diet #PPX -Heparin gtt for DVT ppx - #Dispo - Dispo to ICU for further monitoring/management Zac Bond, PGY1 Plan discussed with attending, Dr. Sparrow Visit type - Emergency Visit Emergency Visit: No - New Patient This patient is new to me today: Yes Date on this admission: 02/01/17 - Critical Care Critical Care patient: Yes Total Critical Care Time (in minutes): 35 Critical Care Statement: The care of this patient involved high complexity decision making to prevent further life threatening deterioration of the patient 's condition and/or to evaluate & treat vital organ system(s) failure or risk of failure.
--- NOTE | 2017-02-01 09:23 | PN ---
Progress Note, Physician History of Present Illness: HPI: Briefly Ms Narayanan is a 71 year old female, with past medical history significant for Afib s/p failed ablation 10 years ago, now on Digoxin and anticoagulation, who presented to the emergency room complaining of a fast heart beat and lightheadedness. Relates that her pulse was in the 160s today, so she called Dr. Eastman ---> ED. Also relates she had 1 syncopal episode w/ o associated chest pain, 3 days ago, where she became lightheaded and fell to the floor, she was not seen at that time. Had no complaints after event. . Pt explains that she started seeing an compression molding machine tender, Dr. Russ, 8 months ago who started her on Digoxin. States that she skipped dose of digoxin because pulse has been low and the above events. Currently denies chest pain, SOB. Denies fever, chills, nausea, vomiting. In ED normothermic, normotensive. 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 Pacer pad placed. Atropine to be at bedside. Plan to adjust meds as necessary in am. On arrival in ICU awake, alert, hemodynamcially stable, no complaints. Pt remains in Afib with HR 58-74. No further pauses. - Current Medication List Current Medications: Active Medications Acetaminophen (Tylenol -) 650 mg PO Q6H PRN PRN Reason: FEVER OR PAIN Chlorhexidine Gluconate (Hibiclens For Decolonization -) 1 applic TP HS [facility] Last Admin: 01/31/17 21:14 Dose: 1 applic Folic Acid (Folic Acid -) 1 mg PO DAILY [facility] Furosemide (Lasix -) 20 mg PO DAILY [facility] Influenza Virus Vaccine Quadrival (Flulaval Quad [id number]) 60 mcg IM .ONCE ONE Stop: 02/02/17 10:01 Latanoprost (Xalatan 0.005% Eye Drops -) 1 drop OU HS JEANMARIE Last Admin: 01/31/17 21:10 Dose: 1 drop Losartan Potassium (Cozaar -) 75 mg PO DAILY [facility] Methotrexate (Mexate -) 22.5 mg PO Th@1000 [facility] Mupirocin (Bactroban Ointment (For Decolonization) -) 1 applic NS BID [facility] Stop: 02/05/17 21:59 Last Admin: 01/31/17 21:11 Dose: 1 applic Pneumococcal 13-Valent Conj Vacc (Prevnar 13 Syringe -) 0.5 ml IM .ONCE ONE Stop: 02/02/17 10:01 Sulfasalazine (Azulfidine En-Tabs -) 500 mg PO BID [facility] Last Admin: 01/31/17 21:15 Dose: 500 mg Warfarin Sodium (Coumadin -) 2.5 mg PO DAILY@1800 [facility] Last Admin: 01/31/17 17:55 Dose: 2.5 mg - Objective Vital Signs: Vital Signs Temperature 97.7 F 02/01/17 06:00 Pulse Rate 83 02/01/17 08:00 Respiratory Rate 19 02/01/17 08:00 Blood Pressure 138/81 02/01/17 08:00 O2 Sat by Pulse Oximetry (%) 99 02/01/17 08:00 Eyes: Yes: WNL, Conjunctiva Clear, EOM Intact HENT: Yes: WNL, Atraumatic, Normocephalic Neck: Yes: WNL, Supple, Trachea Midline Cardiovascular: Yes: WNL, Regular Rate and Rhythm Respiratory: Yes: WNL, Regular, CTA Bilaterally Gastrointestinal: Yes: WNL, Normal Bowel Sounds Genitourinary: Yes: WNL Musculoskeletal: Yes: WNL Extremities: Yes: WNL Edema: No Integumentary: Yes: WNL Neurological: Yes: WNL, Alert, Oriented ...Motor Strength: WNL Psychiatric: Yes: WNL Labs: CBC, BMP 02/01/17 05:00 02/01/17 05:00 INR, PTT INR 1.65 (0.82-1.09) H D 02/01/17 05:00 Problem List - Problems (1) Atrial fibrillation and flutter Code(s): I48.91 - UNSPECIFIED ATRIAL FIBRILLATION I48.92 - UNSPECIFIED ATRIAL FLUTTER (2) Glaucoma Code(s): H40.9 - UNSPECIFIED GLAUCOMA (3) HTN (hypertension) Code(s): I10 - ESSENTIAL (PRIMARY) HYPERTENSION (4) Rheumatoid arteritis Code(s): I00 - RHEUMATIC FEVER WITHOUT HEART INVOLVEMENT (5) Tachy-deandre syndrome Code(s): I49.5 - SICK SINUS SYNDROME Assessment/Plan IMP: Chronic AF on AC, s/p failed ablation 7 second pause after receiving IV digoxin (0.5mg) stable on Metoprolol PO REC: Continue tele in ICU Address thyroid status Echo EP evaluation ordered,
[2017-02-01] MEDS ORDERED: PT OWN MED DRAWER 7, Y5N ONE (09:50)
[2017-02-01] MEDS: FOLIC ACID 1 MG TABLET (FP) PO SCH (09:51)
[2017-02-01] MEDS: FUROSEMIDE 20 MG TABLET (FP) PO SCH (09:51)
[2017-02-01] MEDS: MUPIROCIN 2% TOPICAL OINTMENT FOR DECOLONIZATION NS SCH ×2 (09:52→21:27)
[2017-02-01] MEDS ORDERED: LOSARTAN POTASSIUM 25 MG TABLET PO SCH (10:00)
[2017-02-01] MEDS ORDERED: HEPARIN NA (PORCINE) 5,000 UNITS/ML 1ML VIAL IVPUSH PRN ×2 (13:09)
--- NOTE | 2017-02-01 13:33 | PN ---
Teaching Attending Note Name of Resident: Zac Bond ATTENDING PHYSICIAN STATEMENT I saw and evaluated the patient. I reviewed the resident's note and discussed the case with the resident. I agree with the resident's findings and plan as documented. SUBJECTIVE: Patient seen and examined in the ICU. Awake and alert. Still with rapid A Fib / A flutter. No pauses or episodes of bradycardia. No CP or SOB. Intake & Output 01/29/17 01/30/17 01/31/17 02/01/17 23:59 23:59 23:59 23:59 Intake Total 940 200 Balance 940 200 Weight 126 lb 12.8 oz 126 lb 8 oz 125 lb 14.4 oz Last Vital Signs Temp Pulse Resp BP Pulse Ox 98.9 F 135 H 18 147/70 99 02/01/17 10:00 02/01/17 12:00 02/01/17 12:00 02/01/17 12:00 02/01/17 09:00 Active Medications Acetaminophen (Tylenol -) 650 mg PO Q6H PRN PRN Reason: FEVER OR PAIN Chlorhexidine Gluconate (Hibiclens For Decolonization -) 1 applic TP HS [facility] Last Admin: 01/31/17 21:14 Dose: 1 applic Folic Acid (Folic Acid -) 1 mg PO DAILY [facility] Last Admin: 02/01/17 09:51 Dose: 1 mg Furosemide (Lasix -) 20 mg PO DAILY [facility] [place] Last Admin: 02/01/17 09:51 Dose: 20 mg Heparin Sodium (Porcine) (Heparin -) 1,000 unit IVPUSH PRN PRN PRN Reason: Heparin Heparin Sodium (Porcine) (Heparin -) 5,000 unit IVPUSH PRN PRN PRN Reason: Heparin Heparin Sodium/Dextrose (Heparin Infusion -) 500 mls @ 16 mls/hr IVPB TITR JEANMARIE ; 800 UNITS/HR PRN Reason: Protocol Influenza Virus Vaccine Quadrival (Flulaval Quad [id number]) 60 mcg IM .ONCE ONE Stop: 02/02/17 10:01 Latanoprost (Xalatan 0.005% Eye Drops -) 1 drop OU HS JEANMARIE Last Admin: 01/31/17 21:10 Dose: 1 drop Losartan Potassium (Cozaar -) 75 mg PO DAILY [facility] [place] Last Admin: 02/01/17 09:51 Dose: 75 mg Methotrexate (Mexate -) 22.5 mg PO Th@1000 [facility] Metoprolol Succinate (Toprol Xl -) 100 mg PO BID [facility] Mupirocin (Bactroban Ointment (For Decolonization) -) 1 applic NS BID [facility] Stop: 02/05/17 21:59 Last Admin: 02/01/17 09:52 Dose: 1 applic Pneumococcal 13-Valent Conj Vacc (Prevnar 13 Syringe -) 0.5 ml IM .ONCE ONE Stop: 02/02/17 10:01 Sulfadiazine Sodium (Sulfadiazine) 1,000 mg PO BID [facility] Sulfasalazine (Azulfidine En-Tabs -) 500 mg PO BID [facility] [place] Last Admin: 02/01/17 09:52 Dose: 500 mg Warfarin Sodium (Coumadin -) 2.5 mg PO DAILY@1800 [facility] Last Admin: 01/31/17 17:55 Dose: 2.5 mg GENERAL: Awake, alert, and fully oriented, in no acute distress HEAD: No signs of trauma EYES: PERRLA, EOMI, sclera anicteric, conjunctiva clear ENT: hearing grossly normal, nares patent, oropharynx clear without exudates. Moist mucosa NECK: Normal ROM, supple, no lymphadenopathy, JVD, or masses LUNGS: Breath sounds equal, clear to auscultation bilaterally. No wheezes, and no crackles HEART: Tachycardic, irregularly irregular. Normal S1 and S2. ABDOMEN: Soft, nontender, normoactive bowel sounds. No guarding, no rebound. No masses EXTREMITIES: Normal range of motion, no edema. No clubbing or cyanosis. No cords, erythema, or tenderness NEUROLOGICAL: Cranial nerves II through XII grossly intact. Normal speech, normal gait SKIN: Warm, Dry, normal turgor, no rashes or lesions noted. Laboratory Results - last 24 hr 02/01/17 02/01/17 02/01/17 05:00 05:00 05:00 WBC 6.5 RBC 4.64 Hgb 12.7 Hct 38.9 MCV 84.0 MCH 27.4 MCHC 32.6 RDW 17.0 H Plt Count 245 MPV 8.4 Neutrophils % 48.7 D Lymphocytes % 40.1 H D Monocytes % 8.9 Eosinophils % 1.5 D Basophils % 0.8 PT with INR 18.60 H INR 1.65 H D Sodium 144 Potassium 4.8 Chloride 107 Carbon Dioxide 30 Anion Gap 7 L BUN 15 D Creatinine 0.6 Creat Clearance w eGFR > 60 Random Glucose 84 Calcium 8.8 Magnesium 2.0 Total Bilirubin 0.7 AST 20 D ALT 24 D Alkaline Phosphatase 69 Total Protein 7.0 Albumin 3.5 IMP: Resolved 7 second pause Chronic AFib AFlutter R/O OSAS PLAN: IV Heparin as her INR is sub-therapeutic Sleep screen D/W Cardiology -> Restart Lopressor O2 as needed May benefit from sleep screen (?) EPS Dr Sparrow Critical care time spent in reviewing chart, evaluating patient and formulating plan - 36 minutes.
--- NOTE | 2017-02-01 13:57 | PN ---
Progress Note (short form) - Note Progress Note: pt seen/ examined sitting in chair at bedside all f/u noted started on heparin drip and toprol denies cp. no sob. Vital Signs Temp 98.9 F 02/01/17 10:00 Pulse 135 H 02/01/17 12:00 Resp 18 02/01/17 12:00 BP 147/70 02/01/17 12:00 Pulse Ox 98 02/01/17 13:40 Intake & Output 01/31/17 02/01/17 02/01/17 23:59 11:59 23:59 Intake Total 700 200 Balance 700 200 Weight 125 lb 14.4 oz Intake: Oral 700 200 Other: Voiding Method Toilet Toilet # Unmeasured Voids Void 1 1 Active Medications Acetaminophen (Tylenol -) 650 mg PO Q6H PRN PRN Reason: FEVER OR PAIN Chlorhexidine Gluconate (Hibiclens For Decolonization -) 1 applic TP HS [facility] Last Admin: 01/31/17 21:14 Dose: 1 applic Folic Acid (Folic Acid -) 1 mg PO DAILY [facility] Last Admin: 02/01/17 09:51 Dose: 1 mg Furosemide (Lasix -) 20 mg PO DAILY [facility] Last Admin: 02/01/17 09:51 Dose: 20 mg Heparin Sodium (Porcine) (Heparin -) 1,000 unit IVPUSH PRN PRN PRN Reason: Heparin Heparin Sodium (Porcine) (Heparin -) 5,000 unit IVPUSH PRN PRN PRN Reason: Heparin Heparin Sodium/Dextrose (Heparin Infusion -) 500 mls @ 16 mls/hr IVPB TITR JEANMARIE ; 800 UNITS/HR PRN Reason: Protocol Influenza Virus Vaccine Quadrival (Flulaval Quad [id number]) 60 mcg IM .ONCE ONE Stop: 02/02/17 10:01 Latanoprost (Xalatan 0.005% Eye Drops -) 1 drop OU HS [facility] Last Admin: 01/31/17 21:10 Dose: 1 drop Losartan Potassium (Cozaar -) 75 mg PO DAILY [facility] Last Admin: 02/01/17 09:51 Dose: 75 mg Methotrexate (Mexate -) 22.5 mg PO Th@1000 [facility] Metoprolol Succinate (Toprol Xl -) 100 mg PO BID [facility] Metoprolol Tartrate (Lopressor -) 100 mg PO ONCE ONE Stop: 02/01/17 14:01 Last Admin: 10/16/17 13:47 Dose: 100 mg Mupirocin (Bactroban Ointment (For Decolonization) -) 1 applic NS BID [facility] Stop: 02/05/17 21:59 Last Admin: 02/01/17 09:52 Dose: 1 applic Pneumococcal 13-Valent Conj Vacc (Prevnar 13 Syringe -) 0.5 ml IM .ONCE ONE Stop: 02/02/17 10:01 Sulfadiazine Sodium (Sulfadiazine) 1,000 mg PO BID [facility] Sulfasalazine (Azulfidine En-Tabs -) 500 mg PO BID [facility] Last Admin: 02/01/17 09:52 Dose: 500 mg Warfarin Sodium (Coumadin -) 2.5 mg PO DAILY@1800 [facility] Last Admin: 01/31/17 17:55 Dose: 2.5 mg CBC, BMP 02/01/17 05:00 02/01/17 05:00 echo- pending Physical Examination Constitutional: Yes: No Distress, Calm/ comfortable Eyes: Yes: Conjunctiva Clear HENT: Yes: WNL Neck: Yes: Supple Cardiovascular: Yes: Pulse Irregular Respiratory: Yes: CTA Bilaterally Gastrointestinal: Yes: Normal Bowel Sounds, Soft Edema: No Neurological: Yes: WNL Psychiatric: Yes: Alert Imaging - Results Chest X-ray: Report Reviewed EKG: Report Reviewed Problem List - Problems (1) Atrial fibrillation and flutter Code(s): I48.91 - UNSPECIFIED ATRIAL FIBRILLATION I48.92 - UNSPECIFIED ATRIAL FLUTTER (2) Rheumatoid arteritis Code(s): I00 - RHEUMATIC FEVER WITHOUT HEART INVOLVEMENT (3) HTN (hypertension) Code(s): I10 - ESSENTIAL (PRIMARY) HYPERTENSION (4) Glaucoma Code(s): H40.9 - UNSPECIFIED GLAUCOMA (5) Tachy-deandre syndrome Code(s): I49.5 - SICK SINUS SYNDROME Assessment/Plan stable continue present care cardiology on case discussed with icu attending. monitor inr check free T4 will follow discussed with pt / Problem List - Problems (1) Atrial fibrillation and flutter Code(s): I48.91 - UNSPECIFIED ATRIAL FIBRILLATION I48.92 - UNSPECIFIED ATRIAL FLUTTER (2) Rheumatoid arteritis Code(s): I00 - RHEUMATIC FEVER WITHOUT HEART INVOLVEMENT (3) HTN (hypertension) Code(s): I10 - ESSENTIAL (PRIMARY) HYPERTENSION (4) Glaucoma Code(s): H40.9 - UNSPECIFIED GLAUCOMA (5) Tachy-deandre syndrome Code(s): I49.5 - SICK SINUS SYNDROME
[2017-02-01] MEDS ORDERED: METOPROLOL TARTRATE 50 MG TABLET (FP) PO ONE (14:00)
[2017-02-01] MEDS: HEPARIN INFUSION - 500 ML IVPB SCH (14:38)
[2017-02-01] MEDS: WARFARIN NA 2.5 MG TABLET (FP) PO SCH (17:53)
[2017-02-01] MEDS: CHLORHEXIDINE GLUCONATE 4% CLEANSER FOR DECOLONIZATION TP SCH (21:28)
[2017-02-01] MEDS: LATANOPROST 0.005% OPHTH SOLN 2.5ML BOTTLE OU SCH (21:28)
[2017-02-01] MEDS: METOPROLOL SUCCINATE 100 MG TAB.SR.24H (FP) PO SCH (21:29)
[2017-02-02 06:01] LABS: MCH 27.2 pg (25.7-33.7); MCHC 32.3 g/dl (32.0-36.0); MEAN CELL VOLUME 84.4 fl (80-96); MEAN PLT VOLUME 8.5 fl (7.5-11.1); PLATELET COUNT 233 K/MM3 (134-434); RDW 16.8 % (11.6-15.6); WHITE BLOOD COUNT 7.3 K/mm3 (4.0-10.0)
[2017-02-02 06:12] LABS: INR 1.79 (0.82-1.09); PROTHROMBIN TIME (PATIENT) 20.2 SEC (9.98-11.88)
[2017-02-02 06:42] LABS: ALBUMIN 3.5 g/dl (3.4-5.0); ALK PHOS 70 U/L (45-117); ANION GAP 6 (8-16); BILIRUBIN,TOTAL 0.6 mg/dL (0.2-1.0); CALCIUM 8.7 mg/dL (8.5-10.1); CO2 29 mmol/L (21-32); CREATININE 0.8 mg/dL (0.55-1.02); GLUCOSE,RANDOM 88 mg/dL (74-106); SGOT/AST 22 U/L (15-37); SGPT/ALT 24 U/L (12-78); TOT PROT 7.1 g/dl (6.4-8.2)
--- NOTE | 2017-02-02 07:14 | PN ---
Physical Exam: SUBJECTIVE: Patient seen and examined by me this AM - No major acute events overnight. Pt w/ no complaints. Denies any NIEVES/dizziness , CP, palpitations, N/V, Abdominal pain, peripheral edema, - Rate control much improved overnight on BB. No episodes of sustained tachycardia noted on tele. - Echo notable for severe LA dilatation and mitral stenosis. - Sleep study notable for mild OSAS. Will require CPAP or MAD as outpt. OBJECTIVE: Vital Signs Intake & Output 01/30/17 01/31/17 02/01/17 02/02/17 23:59 23:59 23:59 23:59 Intake Total 940 1822 300 Balance 940 1822 300 Weight 57.516 kg 57.379 kg 57.107 kg Period Temp Pulse Resp BP Sys/Frazier Pulse Ox Last 24 Hr 97.9 F-98.9 F 70-135 17-22 97-151/53-81 98-99 GENERAL: The patient is awake, alert, and fully oriented, in no acute distress. HEAD: Normal with no signs of trauma. EYES: PERRL, extraocular movements intact, sclera anicteric, conjunctiva clear. No ptosis. ENT: Ears normal, nares patent, oropharynx clear without exudates, moist mucous membranes. NECK: Trachea midline, supple, no JVD. LUNGS: Breath sounds equal, clear to auscultation bilaterally, no wheezes, no crackles, no accessory muscle use. HEART: Irregularly irregular, S1, S2 without murmur, rub or gallop. ABDOMEN: Soft, nontender, nondistended, normoactive bowel sounds, no guarding, no rebound, no hepatosplenomegaly, no masses. EXTREMITIES: 2+ pulses, warm, well-perfused, no edema. NEUROLOGICAL: Cranial nerves II through XII grossly intact. Normal speech, gait not observed. Laboratory Results - last 24 hr CBC, BMP 02/02/17 05:00 02/02/17 05:00 02/01/17 02/01/17 02/01/17 13:50 20:00 20:00 WBC RBC Hgb Hct MCV MCH MCHC RDW Plt Count MPV PT with INR INR PTT (Actin FS) 45.1 H 188.5 H D Sodium Potassium Chloride Carbon Dioxide Anion Gap BUN Creatinine Creat Clearance w eGFR Random Glucose Calcium Total Bilirubin AST ALT Alkaline Phosphatase Total Protein Albumin Free T4 1.19 D 02/02/17 02/02/17 02/02/17 05:00 05:00 05:00 WBC 7.3 RBC 4.55 Hgb 12.4 Hct 38.4 MCV 84.4 MCH 27.2 MCHC 32.3 RDW 16.8 H Plt Count 233 MPV 8.5 PT with INR 20.20 H INR 1.79 H PTT (Actin FS) 73.1 H D Sodium Potassium Chloride Carbon Dioxide Anion Gap BUN Creatinine Creat Clearance w eGFR Random Glucose Calcium Total Bilirubin AST ALT Alkaline Phosphatase Total Protein Albumin Free T4 02/02/17 05:00 WBC RBC Hgb Hct MCV MCH MCHC RDW Plt Count MPV PT with INR INR PTT (Actin FS) Sodium 142 Potassium 4.2 Chloride 107 Carbon Dioxide 29 Anion Gap 6 L BUN 16 Creatinine 0.8 D Creat Clearance w eGFR > 60 Random Glucose 88 Calcium 8.7 Total Bilirubin 0.6 AST 22 ALT 24 Alkaline Phosphatase 70 Total Protein 7.1 Albumin 3.5 Free T4 Active Medications Generic Name Dose Route Start Last Admin Trade Name Freq PRN Reason Stop Dose Admin Acetaminophen 650 mg 01/31/17 11:07 Tylenol - PO Q6H PRN FEVER OR PAIN Chlorhexidine Gluconate 1 applic 01/31/17 22:00 02/01/17 21:28 Hibiclens For Decolonization - TP 1 applic HS [facility]MARIE Administration Folic Acid 1 mg 02/01/17 10:00 02/01/17 09:51 Folic Acid - PO 1 mg DAILY [facility] Administration Furosemide 20 mg 02/01/17 10:00 02/01/17 09:51 Lasix - PO 20 mg DAILY [facility] Administration Heparin Sodium (Porcine) 1,000 unit 02/01/17 13:09 Heparin - IVPUSH PRN PRN Heparin Heparin Sodium (Porcine) 5,000 unit 02/01/17 13:09 02/01/17 14:35 Heparin - IVPUSH 5,000 unit PRN PRN Administration Heparin Heparin Sodium/Dextrose 500 mls @ 16 mls/hr 02/01/17 13:15 02/01/17 22:00 Heparin Infusion - IVPB 500 units/hr TITR JEANMARIE Titration Protocol 800 UNITS/HR Influenza Virus Vaccine Quadrival 60 mcg 02/02/17 10:00 Flulaval Quad [id number] IM 02/02/17 10:01 .ONCE ONE Latanoprost 1 drop 10/15/17 22:00 02/01/17 21:28 Xalatan 0.005% Eye Drops - OU 1 drop HS [facility] Administration Losartan Potassium 75 mg 02/01/17 10:00 02/01/17 09:51 Cozaar - PO 75 mg DAILY [facility] Administration Methotrexate 22.5 mg 02/04/17 10:00 Mexate - PO Th@1000 [facility] Metoprolol Succinate 100 mg 02/01/17 22:00 02/01/17 21:29 Toprol Xl - PO 100 mg BID [facility]MARIE Administration Mupirocin 1 applic 01/31/17 22:00 02/01/17 21:27 Bactroban Ointment (For Decolonization) - NS 02/05/17 21:59 1 applic BID [facility]ANMARIE Administration Pneumococcal 13-Valent Conj Vacc 0.5 ml 02/02/17 10:00 Prevnar 13 Syringe - IM 02/02/17 10:01 .ONCE ONE Sulfasalazine 1,000 mg 02/01/17 22:00 02/01/17 21:28 Azulfidine En-Tabs - PO 1,000 mg BID JEANMARIE Administration Warfarin Sodium 2.5 mg 01/31/17 18:00 02/01/17 17:53 Coumadin - PO 2.5 mg DAILY@1800 JEANMARIE Administration No pending micro Recent Imaging: CXR (01/30) - No acute pathology. Clear lung reid. Slightly rotated. ASSESSMENT/PLAN: 71 yo womam pmh of afib, MVP, RA, CHF who presented w/ tachycardia and dizziness , admitted for close monitor and storage bin tender after 7-second sinus pause after receiving digoxin in ED, still w/ persistent afib/aflutter. Pt is stable w/ no further episodes of sustain afib w/ RVR after starting BB. No complaints of palpitations or dyspnea overnight. Continue heparin gtt until INR therapeutic and continue of BB for rate control per cardiology No other active medical issues. Transfer to telemetry today. Will likely require EPS as outpt. #Neuro - Monitor MS - Tylenol for pain #Cardiac - Toprol Xl 100mg BID PO - Continue to hold digoxin in setting of bradycardia - Cozaar 75 mg PO daily - Warfarin 2.5mg PO daily - Lasix 20 PO daily - Cardiac monitoring on telemetry unit - EPS as outpt #Pulm -O2 2L NC PRN. Titrate to >94% - Sleep study + for mild ALFRED. Will require outpt f/u w/ CPAP or MAD for sleep. #Renal -Daily BMPs, monitor lytes - Monitor for dig toxicity #Heme - INR subtherapeutic this AM 1.79 - Continue Heparin gtt until therapeutic INR - Warfarin 2.5 mg PO daily #Endo -TSH 7.0 - Consider synthroid - Endo consult #MSK - Methotrexate/sulfasalazine for RA #GI -Cardiac diet #FEN -Fluids: <2L free water PO -Electrolytes: Daily BMPs, Trend BUN/Cr -Nutrition: Cardiac diet #PPX -Heparin gtt for DVT ppx - PPI for GI PPX #Dispo - Dispo to telemetry for further management Zac Bond, PGY1 Plan discussed with attending, Dr. Sparrow Visit type - Emergency Visit Emergency Visit: No - New Patient This patient is new to me today: No - Critical Care Critical Care patient: Yes Total Critical Care Time (in minutes): 35 Critical Care Statement: The care of this patient involved high complexity decision making to prevent further life threatening deterioration of the patient 's condition and/or to evaluate & treat vital organ system(s) failure or risk of failure.
[2017-02-02] MEDS ORDERED: FLU VACCINE QUAD 60 MCG/0.5 ML (MDV 17-18) IM ONE (10:00)
[2017-02-02] MEDS ORDERED: PNEUMOC 13-VAL CONJ-DIP CRM/PF 0.5 ML DISP.SYRIN IM ONE (10:00)
[2017-02-02] MEDS ORDERED: PT OWN MED DRAWER 7, Y5N ONE ×2 (10:03→21:30)
[2017-02-02] MEDS: MUPIROCIN 2% TOPICAL OINTMENT FOR DECOLONIZATION NS SCH (10:05)
[2017-02-02] MEDS: FOLIC ACID 1 MG TABLET (FP) PO SCH (10:05)
[2017-02-02] MEDS: FUROSEMIDE 20 MG TABLET (FP) PO SCH (10:05)
[2017-02-02] MEDS: METOPROLOL SUCCINATE 100 MG TAB.SR.24H (FP) PO SCH ×2 (10:29→21:42)
--- NOTE | 2017-02-02 10:43 | PN ---
Progress Note, Physician Chief Complaint: events noted no distress no dizziness no chest pain , palpitations no bleeding - Current Medication List Current Medications: Active Medications Acetaminophen (Tylenol -) 650 mg PO Q6H PRN PRN Reason: FEVER OR PAIN Chlorhexidine Gluconate (Hibiclens For Decolonization -) 1 applic TP HS [facility] Last Admin: 02/01/17 21:28 Dose: 1 applic Folic Acid (Folic Acid -) 1 mg PO DAILY [facility] Last Admin: 02/02/17 10:05 Dose: 1 mg Furosemide (Lasix -) 20 mg PO DAILY [facility] Last Admin: 02/02/17 10:05 Dose: 20 mg Heparin Sodium (Porcine) (Heparin -) 1,000 unit IVPUSH PRN PRN PRN Reason: Heparin Heparin Sodium (Porcine) (Heparin -) 5,000 unit IVPUSH PRN PRN PRN Reason: Heparin Last Admin: 02/01/17 14:35 Dose: 5,000 unit Heparin Sodium/Dextrose (Heparin Infusion -) 500 mls @ 16 mls/hr IVPB TITR JEANMARIE ; 800 UNITS/HR PRN Reason: Protocol Last Titration: 02/01/17 22:00 Dose: 500 units/hr Influenza Virus Vaccine Quadrival (Flulaval Quad [id number]) 60 mcg IM .ONCE ONE Stop: 02/02/17 10:01 Latanoprost (Xalatan 0.005% Eye Drops -) 1 drop OU HS [facility] Last Admin: 02/01/17 21:28 Dose: 1 drop Losartan Potassium (Cozaar -) 75 mg PO DAILY [facility] Last Admin: 02/01/17 09:51 Dose: 75 mg Methotrexate (Mexate -) 22.5 mg PO Th@1000 [facility] Metoprolol Succinate (Toprol Xl -) 100 mg PO BID [facility] Last Admin: 02/02/17 10:29 Dose: 100 mg Mupirocin (Bactroban Ointment (For Decolonization) -) 1 applic NS BID [facility] Stop: 02/05/17 21:59 Last Admin: 02/02/17 10:05 Dose: 1 applic Pneumococcal 13-Valent Conj Vacc (Prevnar 13 Syringe -) 0.5 ml IM .ONCE ONE Stop: 02/02/17 10:01 Sulfasalazine (Azulfidine En-Tabs -) 1,000 mg PO BID [facility] Last Admin: 02/02/17 10:04 Dose: 1,000 mg Warfarin Sodium (Coumadin -) 2.5 mg PO DAILY@1800 [facility] Last Admin: 02/01/17 17:53 Dose: 2.5 mg - Objective Vital Signs: Vital Signs Temperature 97.6 F 02/02/17 08:00 Pulse Rate 96 H 02/02/17 08:00 Respiratory Rate 18 02/02/17 08:00 Blood Pressure 179/94 02/02/17 08:00 O2 Sat by Pulse Oximetry (%) 100 02/02/17 08:39 Constitutional: Yes: No Distress, Calm Cardiovascular: Yes: Pulse Irregular Respiratory: Yes: CTA Bilaterally Gastrointestinal: Yes: Normal Bowel Sounds. No: Distention, Tenderness Edema: No Psychiatric: Yes: Alert, Oriented Labs: CBC, BMP 02/02/17 05:00 02/02/17 05:00 INR, PTT INR 1.79 (0.82-1.09) H 02/02/17 05:00 Problem List - Problems (1) Atrial fibrillation and flutter Code(s): I48.91 - UNSPECIFIED ATRIAL FIBRILLATION I48.92 - UNSPECIFIED ATRIAL FLUTTER (2) HTN (hypertension) Code(s): I10 - ESSENTIAL (PRIMARY) HYPERTENSION (3) Tachy-deandre syndrome Code(s): I49.5 - SICK SINUS SYNDROME (4) Rheumatoid arteritis Code(s): I00 - RHEUMATIC FEVER WITHOUT HEART INVOLVEMENT Assessment/Plan PLAN on Heparin drip + coumadin INR subtherapeutic Free T 4 normal rate is controlled with beta blockers 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
--- NOTE | 2017-02-02 11:18 | PN ---
Progress Note, Physician Chief Complaint: Pt OOB in chair; feels much better. No dizziness, palpitations, or chest pain. Now able to hold a conversation, get up and walk a few steps without feeling symptomatic. History of Present Illness: Patient is a 71 year old female ([facility] [place]), with history of afib, MVP, RA and CHF on Warfarin, metoprolol, digoxin and lasix presenting with tachycardia and dizziness. Patient skipped digoxin yesterday and today due to low pulse rate yesterday (58) and dizziness today. Patient's pulse increased to 160+ and Dr Eastman requested admission to [facility] with consult to Dr. Moreira. Patient has a 10+ history of rhythm controlled afib with a failed ablation 10 years ago. Patient was started on digoxin one year ago and has has been tolerating it well but recently has started having dizziness and low pulse rates resulting in skipped doses. Denies headache, fever, chills, shortness of breath, chest pain, abdominal pain. Denies feeling dizzy in ED. PCP: Dr. Gunter Cardio: Dr. Raiza V EP: Dr. Russ - Current Medication List Current Medications: Active Medications Acetaminophen (Tylenol -) 650 mg PO Q6H PRN PRN Reason: FEVER OR PAIN Chlorhexidine Gluconate (Hibiclens For Decolonization -) 1 applic TP HS [facility] Last Admin: 02/01/17 21:28 Dose: 1 applic Folic Acid (Folic Acid -) 1 mg PO DAILY [facility] Last Admin: 02/02/17 10:05 Dose: 1 mg Furosemide (Lasix -) 20 mg PO DAILY [facility] Last Admin: 02/02/17 10:05 Dose: 20 mg Heparin Sodium (Porcine) (Heparin -) 1,000 unit IVPUSH PRN PRN PRN Reason: Heparin Heparin Sodium (Porcine) (Heparin -) 5,000 unit IVPUSH PRN PRN PRN Reason: Heparin Last Admin: 02/01/17 14:35 Dose: 5,000 unit Heparin Sodium/Dextrose (Heparin Infusion -) 500 mls @ 16 mls/hr IVPB TITR JEANMARIE ; 800 UNITS/HR PRN Reason: Protocol Last Titration: 02/01/17 22:00 Dose: 500 units/hr Influenza Virus Vaccine Quadrival (Flulaval Quad [id number]) 60 mcg IM .ONCE ONE Stop: 02/02/17 10:01 Latanoprost (Xalatan 0.005% Eye Drops -) 1 drop OU HS [facility] Last Admin: 02/01/17 21:28 Dose: 1 drop Losartan Potassium (Cozaar -) 75 mg PO DAILY [facility] Last Admin: 02/01/17 09:51 Dose: 75 mg Methotrexate (Mexate -) 22.5 mg PO Th@1000 [facility] Metoprolol Succinate (Toprol Xl -) 100 mg PO BID [facility] Last Admin: 02/02/17 10:29 Dose: 100 mg Mupirocin (Bactroban Ointment (For Decolonization) -) 1 applic NS BID [facility] Stop: 02/05/17 21:59 Last Admin: 02/02/17 10:05 Dose: 1 applic Pneumococcal 13-Valent Conj Vacc (Prevnar 13 Syringe -) 0.5 ml IM .ONCE ONE Stop: 02/02/17 10:01 Sulfasalazine (Azulfidine En-Tabs -) 1,000 mg PO BID [facility] Last Admin: 02/02/17 10:04 Dose: 1,000 mg Warfarin Sodium (Coumadin -) 2.5 mg PO DAILY@1800 [facility] Last Admin: 02/01/17 17:53 Dose: 2.5 mg - Objective Vital Signs: Vital Signs Temperature 98 F 02/02/17 10:00 Pulse Rate 98 H 02/02/17 10:00 Respiratory Rate 18 02/02/17 10:00 Blood Pressure 109/62 02/02/17 10:00 O2 Sat by Pulse Oximetry (%) 100 02/02/17 08:39 Constitutional: Yes: Calm Eyes: Yes: WNL HENT: Yes: WNL Neck: Yes: WNL Cardiovascular: Yes: Pulse Irregular, S1 (varies in intensity) Respiratory: Yes: Regular Gastrointestinal: Yes: Soft ...Rectal Exam: Yes: Deferred Genitourinary: No: Anuria Breast(s): Yes: WNL Musculoskeletal: Yes: WNL Extremities: Yes: Cool Edema: No Peripheral Pulses WNL: Yes Integumentary: Yes: WNL Neurological: Yes: WNL Psychiatric: Yes: WNL Labs: CBC, BMP 02/02/17 05:00 02/02/17 05:00 INR, PTT INR 1.79 (0.82-1.09) H 02/02/17 05:00 - ....Imaging Other: Image Reviewed (telemetry: AF; controlled VR; no further significant pauses) Problem List - Problems (1) Atrial fibrillation and flutter Assessment/Plan: Continue metoprolol. Digoxin held (7 second pause after 0.5 mg digoxin IVP); no recent significant pauses. Discussed pt today with her vp digital marketing, Dr. Jaciel Santana, [facility]. Pt will be transferred if again symptomatic and/or has unstable HR; otherwise, she will be seen by him as outpatient next week. In the past, she had been on both metoprolol and digoxin for HR control (though it would be preferred to remain off the latter, given its multiple adverse properties, and particularly in light of events this admission). She will likely require PPM; ablation Rx unsuccessful in the past, and pt is reluctant to have the procedure repeated. Code(s): I48.91 - UNSPECIFIED ATRIAL FIBRILLATION I48.92 - UNSPECIFIED ATRIAL FLUTTER (2) HTN (hypertension) Code(s): I10 - ESSENTIAL (PRIMARY) HYPERTENSION (3) Rheumatoid arteritis Code(s): I00 - RHEUMATIC FEVER WITHOUT HEART INVOLVEMENT (4) Tachy-deandre syndrome Assessment/Plan: Please see under "Atrial fibrillation". Code(s): I49.5 - SICK SINUS SYNDROME (5) Mitral valve disease Code(s): I05.9 - RHEUMATIC MITRAL VALVE DISEASE, UNSPECIFIED Assessment/Plan CCU time spent examining and speaking with pt and family, perusing chart, discussing case with EP , writing note and formulating plan: 50 minutes.
--- NOTE | 2017-02-02 12:14 | PN ---
Teaching Attending Note Name of Resident: Zac Bond ATTENDING PHYSICIAN STATEMENT I saw and evaluated the patient. I reviewed the resident's note and discussed the case with the resident. I agree with the resident's findings and plan as documented. SUBJECTIVE: Patient seen and examined in the ICU. Awake and alert. Rates are better. Sleep apnea screen reveals Moderate OSAS with an AHI of 23 events per hour. Intake & Output 01/30/17 01/31/17 02/01/17 02/02/17 23:59 23:59 23:59 23:59 Intake Total 940 1822 300 Output Total 500 Balance 940 1822 -200 Weight 126 lb 12.8 oz 126 lb 8 oz 125 lb 14.4 oz Last Vital Signs Temp Pulse Resp BP Pulse Ox 98 F 98 H 18 109/62 100 02/02/17 10:00 02/02/17 10:00 02/02/17 10:00 02/02/17 10:00 02/02/17 08:39 Active Medications Acetaminophen (Tylenol -) 650 mg PO Q6H PRN PRN Reason: FEVER OR PAIN Chlorhexidine Gluconate (Hibiclens For Decolonization -) 1 applic TP HS [facility] Last Admin: 02/01/17 21:28 Dose: 1 applic Folic Acid (Folic Acid -) 1 mg PO DAILY [facility] Last Admin: 02/02/17 10:05 Dose: 1 mg Furosemide (Lasix -) 20 mg PO DAILY [facility] Last Admin: 02/02/17 10:05 Dose: 20 mg Heparin Sodium (Porcine) (Heparin -) 1,000 unit IVPUSH PRN PRN PRN Reason: Heparin Heparin Sodium (Porcine) (Heparin -) 5,000 unit IVPUSH PRN PRN PRN Reason: Heparin Last Admin: 02/01/17 14:35 Dose: 5,000 unit Heparin Sodium/Dextrose (Heparin Infusion -) 500 mls @ 16 mls/hr IVPB TITR JEANMARIE ; 800 UNITS/HR PRN Reason: Protocol Last Titration: 02/01/17 22:00 Dose: 500 units/hr Influenza Virus Vaccine Quadrival (Flulaval Quad [id number]) 60 mcg IM .ONCE ONE Stop: 02/02/17 10:01 Latanoprost (Xalatan 0.005% Eye Drops -) 1 drop OU HS [facility] Last Admin: 02/01/17 21:28 Dose: 1 drop Losartan Potassium (Cozaar -) 75 mg PO DAILY [facility] BEDS AT [facility] Last Admin: 02/01/17 09:51 Dose: 75 mg Methotrexate (Mexate -) 22.5 mg PO Th@1000 [facility]S INCLUDE 234 BEDS AT [facility] Metoprolol Succinate (Toprol Xl -) 100 mg PO BID [facility]S [facility]CLUDE 234 BEDS AT [facility] Last Admin: 02/02/17 10:29 Dose: 100 mg Mupirocin (Bactroban Ointment (For Decolonization) -) 1 applic NS BID [facility]S INCLUDE 234 BEDS AT [facility] Stop: 02/05/17 21:59 Last Admin: 02/02/17 10:05 Dose: 1 applic Pneumococcal 13-Valent Conj Vacc (Prevnar 13 Syringe -) 0.5 ml IM .ONCE ONE Stop: 02/02/17 10:01 Sulfasalazine (Azulfidine En-Tabs -) 1,000 mg PO BID [facility]S INCLUDE 234 BEDS AT [facility] Last Admin: 02/02/17 10:04 Dose: 1,000 mg Warfarin Sodium (Coumadin -) 2.5 mg PO DAILY@1800 COUNTS INCLUDE 234 BEDS AT [facility] Last Admin: 02/01/17 17:53 Dose: 2.5 mg GENERAL: Awake, alert, and fully oriented, in no acute distress HEAD: No signs of trauma EYES: PERRLA, EOMI, sclera anicteric, conjunctiva clear ENT: hearing grossly normal, nares patent, oropharynx clear without exudates. Moist mucosa NECK: Normal ROM, supple, no lymphadenopathy, JVD, or masses LUNGS: Breath sounds equal, clear to auscultation bilaterally. No wheezes, and no crackles HEART: Tachycardic, irregularly irregular. Normal S1 and S2. ABDOMEN: Soft, nontender, normoactive bowel sounds. No guarding, no rebound. No masses EXTREMITIES: Normal range of motion, no edema. No clubbing or cyanosis. No cords, erythema, or tenderness NEUROLOGICAL: Cranial nerves II through XII grossly intact. Normal speech, normal gait SKIN: Warm, Dry, normal turgor, no rashes or lesions noted. Laboratory Results - last 24 hr 02/01/17 02/01/17 02/01/17 13:50 20:00 20:00 WBC RBC Hgb Hct MCV MCH MCHC RDW Plt Count MPV PT with INR INR PTT (Actin FS) 45.1 H 188.5 H D Sodium Potassium Chloride Carbon Dioxide Anion Gap BUN Creatinine Creat Clearance w eGFR Random Glucose Calcium Total Bilirubin AST ALT Alkaline Phosphatase Total Protein Albumin Free T4 1.19 D 02/02/17 02/02/17 02/02/17 05:00 05:00 05:00 WBC 7.3 RBC 4.55 Hgb 12.4 Hct 38.4 MCV 84.4 MCH 27.2 MCHC 32.3 RDW 16.8 H Plt Count 233 MPV 8.5 PT with INR 20.20 H INR 1.79 H PTT (Actin FS) 73.1 H D Sodium Potassium Chloride Carbon Dioxide Anion Gap BUN Creatinine Creat Clearance w eGFR Random Glucose Calcium Total Bilirubin AST ALT Alkaline Phosphatase Total Protein Albumin Free T4 02/02/17 05:00 WBC RBC Hgb Hct MCV MCH MCHC RDW Plt Count MPV PT with INR INR PTT (Actin FS) Sodium 142 Potassium 4.2 Chloride 107 Carbon Dioxide 29 Anion Gap 6 L BUN 16 Creatinine 0.8 D Creat Clearance w eGFR > 60 Random Glucose 88 Calcium 8.7 Total Bilirubin 0.6 AST 22 ALT 24 Alkaline Phosphatase 70 Total Protein 7.1 Albumin 3.5 Free T4 IMP: Resolved 7 second pause Chronic AFib AFlutter Moderate OSAS PLAN: IV Heparin Coumadin Will need CPAP trial or MAD for treatment of Moderate OSAS Lopressor O2 as needed Cardiac Telemetry monitoring Dr Sparrow Critical care time spent in reviewing chart, evaluating patient and formulating plan - 35 minutes
[2017-02-02] MEDS: HEPARIN INFUSION - 500 ML IVPB SCH ×2 (14:04→17:59)
[2017-02-02] MEDS ORDERED: ACETAMINOPHEN 325 MG TABLET (FP) PO PRN (16:36)
[2017-02-02] MEDS ORDERED: HEPARIN NA (PORCINE) 5,000 UNITS/ML 1ML VIAL IVPUSH PRN ×4 (16:36)
[2017-02-02] MEDS ORDERED: WARFARIN NA 2.5 MG TABLET (FP) PO SCH (18:00)
[2017-02-02] MEDS ORDERED: CHLORHEXIDINE GLUCONATE 4% CLEANSER FOR DECOLONIZATION TP SCH (22:00)
[2017-02-02] MEDS ORDERED: MUPIROCIN 2% TOPICAL OINTMENT FOR DECOLONIZATION NS SCH (22:00)
[2017-02-02] MEDS: LATANOPROST 0.005% OPHTH SOLN 2.5ML BOTTLE OU SCH (22:27)
[2017-02-03 07:18] LABS: BASOPHIL 0.6 % (0-2.0); EOSINOPHIL 1.3 % (0-4.5); MCHC 31.8 g/dl (32.0-36.0); MEAN PLT VOLUME 8.3 fl (7.5-11.1); PLATELET COUNT 263 K/MM3 (134-434); RDW 16.7 % (11.6-15.6); WHITE BLOOD COUNT 6.8 K/mm3 (4.0-10.0)
[2017-02-03 07:32] LABS: INR 1.83 (0.82-1.09); PROTHROMBIN TIME (PATIENT) 20.7 SEC (9.98-11.88)
[2017-02-03 07:47] LABS: ANION GAP 7 (8-16); CO2 29 mmol/L (21-32); GLUCOSE,RANDOM 91 mg/dL (74-106); SGOT/AST 25 U/L (15-37); SGPT/ALT 26 U/L (12-78)
[2017-02-03 07:49] LABS: ALK PHOS 73 U/L (45-117); BILIRUBIN,TOTAL 0.5 mg/dL (0.2-1.0); CREATININE 0.7 mg/dL (0.55-1.02); TOT PROT 7.9 g/dl (6.4-8.2)
[2017-02-03] MEDS ORDERED: PT OWN MED DRAWER 7, Y5N ONE (09:28)
[2017-02-03] MEDS: LOSARTAN POTASSIUM 25 MG TABLET PO SCH (10:09)
[2017-02-03] MEDS: FOLIC ACID 1 MG TABLET (FP) PO SCH (10:10)
[2017-02-03] MEDS: FUROSEMIDE 20 MG TABLET (FP) PO SCH (10:10)
[2017-02-03] MEDS: HEPARIN INFUSION - 500 ML IVPB SCH ×3 (10:15→20:08)
[2017-02-03] MEDS: METOPROLOL SUCCINATE 100 MG TAB.SR.24H (FP) PO SCH ×2 (10:18→21:16)
--- NOTE | 2017-02-03 10:50 | PN ---
Progress Note, Physician History of Present Illness: HPI: Briefly Ms Narayanan is a 71 year old female, with past medical history significant for Afib s/p failed ablation 10 years ago, now on Digoxin and anticoagulation, who presented to the emergency room complaining of a fast heart beat and lightheadedness. Relates that her pulse was in the 160s today, so she called Dr. Eastman ---> ED. Also relates she had 1 syncopal episode w/ o associated chest pain, 3 days ago, where she became lightheaded and fell to the floor, she was not seen at that time. Had no complaints after event. . Pt explains that she started seeing an horologist apprentice, Dr. Russ, 8 months ago who started her on Digoxin. States that she skipped dose of digoxin because pulse has been low and the above events. Currently denies chest pain, SOB. Denies fever, chills, nausea, vomiting. In ED normothermic, normotensive. 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 Pacer pad placed. Atropine to be at bedside. Plan to adjust meds as necessary in am. On arrival in ICU awake, alert, hemodynamcially stable, no complaints. Pt remains in Afib with HR 58-74. No further pauses. - Current Medication List Current Medications: Active Medications Acetaminophen (Tylenol -) 650 mg PO Q6H PRN PRN Reason: FEVER OR PAIN Folic Acid (Folic Acid -) 1 mg PO DAILY [facility] Last Admin: 02/03/17 10:10 Dose: 1 mg Furosemide (Lasix -) 20 mg PO DAILY [facility] Last Admin: 02/03/17 10:10 Dose: 20 mg Heparin Sodium (Porcine) (Heparin -) 1,000 unit IVPUSH PRN PRN PRN Reason: Heparin Heparin Sodium (Porcine) (Heparin -) 5,000 unit IVPUSH PRN PRN PRN Reason: Heparin Heparin Sodium/Dextrose (Heparin Infusion -) 500 mls @ 16 mls/hr IVPB TITR JEANMARIE ; 800 UNITS/HR PRN Reason: Protocol Last Admin: 02/03/17 10:15 Dose: 10 mls/hr Latanoprost (Xalatan 0.005% Eye Drops -) 1 drop OU HS [facility] Last Admin: 02/02/17 22:27 Dose: 1 drop Losartan Potassium (Cozaar -) 75 mg PO DAILY [facility] Last Admin: 02/03/17 10:09 Dose: 75 mg Methotrexate (Mexate -) 22.5 mg PO Th@1000 [facility] Metoprolol Succinate (Toprol Xl -) 100 mg PO BID [facility] Last Admin: 02/03/17 10:18 Dose: 100 mg Sulfasalazine (Azulfidine En-Tabs -) 1,000 mg PO BID [facility] Last Admin: 02/03/17 10:17 Dose: 1,000 mg Warfarin Sodium (Coumadin -) 2.5 mg PO DAILY@1800 [facility] Last Admin: 02/02/17 17:54 Dose: 2.5 mg - Objective Vital Signs: Vital Signs Temperature 98.2 F 02/03/17 09:00 Pulse Rate 82 02/03/17 09:00 Respiratory Rate 14 02/03/17 09:00 Blood Pressure 138/76 02/03/17 09:00 O2 Sat by Pulse Oximetry (%) 96 02/02/17 21:00 Eyes: Yes: WNL, Conjunctiva Clear, EOM Intact HENT: Yes: WNL, Atraumatic, Normocephalic Neck: Yes: WNL, Supple, Trachea Midline Cardiovascular: Yes: Pulse Irregular Respiratory: Yes: WNL, Regular, CTA Bilaterally Gastrointestinal: Yes: WNL, Normal Bowel Sounds Genitourinary: Yes: WNL Musculoskeletal: Yes: WNL Extremities: Yes: WNL Edema: No Integumentary: Yes: WNL Neurological: Yes: WNL, Alert, Oriented ...Motor Strength: WNL Psychiatric: Yes: WNL Labs: CBC, BMP 02/03/17 05:18 02/03/17 05:18 INR, PTT INR 1.83 (0.82-1.09) H 02/03/17 05:18 Problem List - Problems (1) Atrial fibrillation and flutter Code(s): I48.91 - UNSPECIFIED ATRIAL FIBRILLATION I48.92 - UNSPECIFIED ATRIAL FLUTTER (2) Glaucoma Code(s): H40.9 - UNSPECIFIED GLAUCOMA (3) HTN (hypertension) Code(s): I10 - ESSENTIAL (PRIMARY) HYPERTENSION (4) Rheumatoid arteritis Code(s): I00 - RHEUMATIC FEVER WITHOUT HEART INVOLVEMENT (5) Tachy-deandre syndrome Code(s): I49.5 - SICK SINUS SYNDROME Assessment/Plan IMP: Chronic AF on AC, s/p failed ablation 7 second pause after receiving IV digoxin (0.5mg) stable on Metoprolol PO REC: Continue tele EP evaluation as outp cont AC
--- NOTE | 2017-02-03 11:17 | PN ---
Progress Note, Physician Chief Complaint: no distress feels well ambulating in hallway-- HR stays in 80-100's - Current Medication List Current Medications: Active Medications Acetaminophen (Tylenol -) 650 mg PO Q6H PRN PRN Reason: FEVER OR PAIN Folic Acid (Folic Acid -) 1 mg PO DAILY [facility] Last Admin: 02/03/17 10:10 Dose: 1 mg Furosemide (Lasix -) 20 mg PO DAILY [facility] Last Admin: 02/03/17 10:10 Dose: 20 mg Heparin Sodium (Porcine) (Heparin -) 1,000 unit IVPUSH PRN PRN PRN Reason: Heparin Heparin Sodium (Porcine) (Heparin -) 5,000 unit IVPUSH PRN PRN PRN Reason: Heparin Heparin Sodium/Dextrose (Heparin Infusion -) 500 mls @ 16 mls/hr IVPB TITR JEANMARIE ; 800 UNITS/HR PRN Reason: Protocol Last Admin: 02/03/17 10:15 Dose: 10 mls/hr Latanoprost (Xalatan 0.005% Eye Drops -) 1 drop OU HS [facility] Last Admin: 02/02/17 22:27 Dose: 1 drop Losartan Potassium (Cozaar -) 75 mg PO DAILY [facility] Last Admin: 02/03/17 10:09 Dose: 75 mg Methotrexate (Mexate -) 22.5 mg PO Th@1000 [facility] Metoprolol Succinate (Toprol Xl -) 100 mg PO BID [facility] Last Admin: 02/03/17 10:18 Dose: 100 mg Sulfasalazine (Azulfidine En-Tabs -) 1,000 mg PO BID [facility] Last Admin: 02/03/17 10:17 Dose: 1,000 mg Warfarin Sodium (Coumadin -) 2.5 mg PO DAILY@1800 [facility] Last Admin: 02/02/17 17:54 Dose: 2.5 mg - Objective Vital Signs: Vital Signs Temperature 98.2 F 02/03/17 09:00 Pulse Rate 82 02/03/17 09:00 Respiratory Rate 14 02/03/17 09:00 Blood Pressure 138/76 02/03/17 09:00 O2 Sat by Pulse Oximetry (%) 96 02/03/17 09:00 Constitutional: Yes: No Distress Cardiovascular: Yes: Pulse Irregular Respiratory: Yes: CTA Bilaterally Gastrointestinal: Yes: Normal Bowel Sounds, Soft. No: Distention, Tenderness Edema: No Psychiatric: Yes: Alert, Oriented Labs: CBC, BMP 02/03/17 05:18 02/03/17 05:18 INR, PTT INR 1.83 (0.82-1.09) H 02/03/17 05:18 Problem List - Problems (1) Atrial fibrillation and flutter Code(s): I48.91 - UNSPECIFIED ATRIAL FIBRILLATION I48.92 - UNSPECIFIED ATRIAL FLUTTER (2) HTN (hypertension) Code(s): I10 - ESSENTIAL (PRIMARY) HYPERTENSION (3) Tachy-deandre syndrome Code(s): I49.5 - SICK SINUS SYNDROME (4) Rheumatoid arteritis Code(s): I00 - RHEUMATIC FEVER WITHOUT HEART INVOLVEMENT Assessment/Plan PLAN on Heparin drip + coumadin INR subtherapeutic Free T 4 normal rate is controlled with beta blockers increase Coumadin tonight
[2017-02-03] MEDS ORDERED: WARFARIN NA 3 MG TABLET PO SCH (11:19)
[2017-02-03] MEDS: LATANOPROST 0.005% OPHTH SOLN 2.5ML BOTTLE OU SCH (21:17)
[2017-02-04 08:01] LABS: MCH 26.9 pg (25.7-33.7); MCHC 31.9 g/dl (32.0-36.0); MEAN CELL VOLUME 84.3 fl (80-96); MEAN PLT VOLUME 8.3 fl (7.5-11.1); PLATELET COUNT 231 K/MM3 (134-434); RDW 17.3 % (11.6-15.6); WHITE BLOOD COUNT 6.9 K/mm3 (4.0-10.0)
[2017-02-04 08:14] LABS: INR 2.05 (0.82-1.09); PROTHROMBIN TIME (PATIENT) 23.2 SEC (9.98-11.88)
[2017-02-04] MEDS: LOSARTAN POTASSIUM 25 MG TABLET PO SCH (09:17)
[2017-02-04] MEDS: FUROSEMIDE 20 MG TABLET (FP) PO SCH (09:17)
[2017-02-04] MEDS: FOLIC ACID 1 MG TABLET (FP) PO SCH (09:17)
[2017-02-04] MEDS: METOPROLOL SUCCINATE 100 MG TAB.SR.24H (FP) PO SCH (09:18)
[2017-02-04] MEDS ORDERED: METHOTREXATE 2.5 MG TABLET PO SCH ×2 (10:00)
[2017-02-04 10:07] VITALS: BP 110/80; PULSE 106; TEMP 98
--- NOTE | 2017-02-04 10:22 | PN ---
Progress Note, Physician Chief Complaint: Pt A&Ox3; ambulates well. Asymptomatic History of Present Illness: Patient is a 71 year old female ([facility]), with history of afib, MVP, RA and CHF on Warfarin, metoprolol, digoxin and lasix presenting with tachycardia and dizziness. Patient skipped digoxin yesterday and today due to low pulse rate yesterday (58) and dizziness today. Patient's pulse increased to 160+ and Dr Eastman requested admission to [facility] with consult to Dr. Moreira. Patient has a 10+ history of rhythm controlled afib with a failed ablation 10 years ago. Patient was started on digoxin one year ago and has has been tolerating it well but recently has started having dizziness and low pulse rates resulting in skipped doses. Denies headache, fever, chills, shortness of breath, chest pain, abdominal pain. Denies feeling dizzy in ED. PCP: Dr. Gunter Cardio: Dr. Eastman, Usha EP: Dr. Russ - Current Medication List Current Medications: Active Medications Acetaminophen (Tylenol -) 650 mg PO Q6H PRN PRN Reason: FEVER OR PAIN Folic Acid (Folic Acid -) 1 mg PO DAILY [facility] Last Admin: 02/04/17 09:17 Dose: 1 mg Furosemide (Lasix -) 20 mg PO DAILY [facility] Last Admin: 02/04/17 09:17 Dose: 20 mg Latanoprost (Xalatan 0.005% Eye Drops -) 1 drop OU HS [facility] Last Admin: 02/03/17 21:17 Dose: 1 drop Losartan Potassium (Cozaar -) 75 mg PO DAILY [facility] Last Admin: 02/04/17 09:17 Dose: 75 mg Methotrexate (Mexate -) 22.5 mg PO Th@1000 [facility] Last Admin: 02/04/17 09:18 Dose: 22.5 mg Metoprolol Succinate (Toprol Xl -) 100 mg PO BID [facility] Last Admin: 02/04/17 09:18 Dose: 100 mg Sulfasalazine (Azulfidine En-Tabs -) 1,000 mg PO BID [facility] Last Admin: 02/04/17 09:16 Dose: 1,000 mg Warfarin Sodium (Coumadin -) 3 mg PO DAILY@1800 [facility] Last Admin: 02/03/17 17:08 Dose: 3 mg - Objective Vital Signs: Vital Signs Temperature 98 F 02/04/17 10:00 Pulse Rate 106 H 02/04/17 10:00 Respiratory Rate 18 02/04/17 10:00 Blood Pressure 110/80 02/04/17 10:00 O2 Sat by Pulse Oximetry (%) 100 02/04/17 09:00 Labs: CBC, BMP 02/04/17 05:25 02/03/17 05:18 INR, PTT INR 2.05 (0.82-1.09) H 02/04/17 05:25 Problem List - Problems (1) Atrial fibrillation and flutter Assessment/Plan: Telemetry: AF with controlled VR. INR 2.05. Plan: Discontinue IV heparina; continue warfarin. From a cardiac standpoint, pt may be followed as anoutpatient. Continue metoprolol. For f/u with EP next week. Digoxin held (7 second pause after 0.5 mg digoxin IVP); no recent significant pauses. Discussed pt with her seam sewer, Dr. Jaciel Santana, [facility].n the past, she had been on both metoprolol and digoxin for HR control (though it would be preferred to remain off the latter, given its multiple adverse properties, and particularly in light of events this admission). She will likely require PPM; ablation Rx unsuccessful in the past, and pt is reluctant to have the procedure repeated. Code(s): I48.91 - UNSPECIFIED ATRIAL FIBRILLATION I48.92 - UNSPECIFIED ATRIAL FLUTTER (2) HTN (hypertension) Code(s): I10 - ESSENTIAL (PRIMARY) HYPERTENSION (3) Rheumatoid arteritis Code(s): I00 - RHEUMATIC FEVER WITHOUT HEART INVOLVEMENT (4) Tachy-deandre syndrome Code(s): I49.5 - SICK SINUS SYNDROME (5) Mitral valve disease Code(s): I05.9 - RHEUMATIC MITRAL VALVE DISEASE, UNSPECIFIED
--- NOTE | 2017-02-04 10:32 | DS ---
Physical Examination Vital Signs: Vital Signs Temperature 98 F 02/04/17 10:00 Pulse Rate 106 H 02/04/17 10:00 Respiratory Rate 18 02/04/17 10:00 Blood Pressure 110/80 02/04/17 10:00 O2 Sat by Pulse Oximetry (%) 100 02/04/17 09:00 Constitutional: Yes: No Distress, Calm Cardiovascular: Yes: Pulse Irregular Respiratory: Yes: CTA Bilaterally Gastrointestinal: Yes: Normal Bowel Sounds, Soft. No: Distention, Tenderness Edema: No Labs: CBC, BMP 02/04/17 05:25 02/03/17 05:18 Discharge Summary Reason For Visit: ATRIAL FIBRILLATION AND FLUTTER Current Active Problems Atrial fibrillation and flutter (Acute) Glaucoma (Acute) HTN (hypertension) (Acute) Mitral valve disease (Acute) Rheumatoid arteritis (Acute) Tachy-deandre syndrome (Acute) Hospital Course: Admitted for rapid Afib Received Digoxin in ER and had a 7 sec pause She was admitted to ICU-- seen by Barge Captain and Starch Factory Laborer Rate controlled by Metoprolol only Pt started on Heparin drip with Coumadin Echo normal EF pt was later trasferred to telemetry when stable, ambulted well-- no increased heart rate. Heart rate continues to be between 90-100's pt feels well no dizziness, palpitations, SOB INR today is above 2-- she is stable for dc home, continue with coumadn 2.5mg daily along with Metoprolol and losartan-- HOLD OFF DIGOXIN she has appointment with chronic specialist -- DR Russ at [facility] on 02/10 I advised her to follow with DR Gil- PMD for INR check on Wednesday Condition: Stable - Instructions Referrals: Chao Gunter MD [Primary Care Provider] - Disposition: HOME - Home Medications Comprehensive Discharge Medication List: Ambulatory Orders Folic Acid - 1 mg PO DAILY #0 tablet 02/01/12 Metoprolol Succinate [Toprol XL -] 100 mg PO BID #0 tab.sr.24h 02/01/12 Furosemide [Lasix -] 20 mg PO DAILY 01/30/17 Losartan Potassium [Cozaar -] 75 mg PO DAILY 01/30/17 Methotrexate Sodium [Methotrexate] 9 tab PO WEEKLY 01/30/17 Travoprost [Travatan Z] 2.5 ml OP DAILY 01/30/17 Warfarin Na [Coumadin -] 2.5 mg PO DAILY 01/30/17 Sulfasalazine [Azulfidine En-Tabs -] 1,000 mg PO BID #90 tab 02/04/17
[2017-02-04] MEDS ORDERED: FLU VACCINE QUAD 60 MCG/0.5 ML (MDV 17-18) IM ONE (11:00)
== END 2017-02-04 11:36 | disposition home or self-care (01) | DRG 310 ==
LOC: JER 12:12 → JERBED 16:19 → JICU 20:24 → J4W 02-02 17:13
PROVIDERS: ADMIT Internal Medicine; ATTEND Internal Medicine
DX: I48.2 Chronic atrial fibrillation (principal); I48.92 Unspecified atrial flutter; I49.5 Sick sinus syndrome; I10 Essential (primary) hypertension; G47.33 Obstructive sleep apnea (adult) (pediatric); M06.9 Rheumatoid arthritis, unspecified; I50.9 Heart failure, unspecified; H40.9 Unspecified glaucoma; I34.9 Nonrheumatic mitral valve disorder, unspecified
CPT/HCPCS: 36415; 71010-TC; 80053; 80162; 82272; 82550; 83735; 84439; 84443; 84484; 85025; 85027; 85610; 85730; 90688; 93005; 93010; 93306-TC; 99284-25; G0008; J1644; J8610

== ENCOUNTER 2017-05-25 09:29 | Day surgery (SDC) | payer OTHER, MEDICARE ==
[2017-05-24 14:56] VITALS: BMI 24.7
[2017-05-25] MEDS ORDERED: PROPOFOL 20 ML ONE (10:50)
[2017-05-25 11:36] VITALS: TEMP 97.9
[2017-05-25 12:38] VITALS: BP 110/60; PULSE 62
--- NOTE | 2017-05-26 13:21 | PATH ---
Surgical Pathology Report Patient Name: HUNG CARTAGENA [facility]. Rec. #: [id number] /Age/Gender: 1945 (Age: 71) / F Account: [id number] Location: [facility]-ENDOSCOPY Taken: 05/25/2017 Received: 05/25/2017 Reported: 05/26/2017 Physicians: Sidney Dubon M.D. Specimen(s) Received BX COLON POLYP Clinical History Preoperative diagnosis: Screening Postoperative diagnosis: Polyp, diverticulosis Final Diagnosis COLON, LEFT, POLYP, POLYPECTOMY: TUBULAR ADENOMA. Electronically Signed Ginna Cline M.D. Gross Description Received in formalin, labeled "left colon polyp" is a cosme, irregular portion of soft tissue measuring 0.4 cm. in greatest dimension. The specimen is submitted in toto in one cassette. 05/25/201705/25/2017
== END 2017-05-25 12:30 | disposition home or self-care (01) ==
LOC: JASU-ENDO 09:29
PROVIDERS: ATTEND Internal Medicine Gastroenterology
PROC: 0DBG8ZX Excision of Left Large Intestine, Via Natural or Artificial Opening Endoscopic, Diagnostic (ICD-10-PCS; principal; 2017-05-25 11:30)
DX: Z12.11 Encounter for screening for malignant neoplasm of colon (principal); K63.5 Polyp of colon; K57.30 Diverticulosis of large intestine without perforation or abscess without bleeding
CPT/HCPCS: 88305-TC

== ENCOUNTER 2020-05-06 12:29 | Emergency (ER) | payer OTHER, MEDICARE ==
[2020-05-06 12:54] VITALS: BMI 23.0
[2020-05-06 13:16] LABS: BASO % 0.7 % (0-2.0); EOS % 0.3 % (0-4.5); HEMOGLOBIN 11.6 GM/dL (10.7-15.3); MCHC 32.3 g/dl (32.0-36.0); MEAN CELL VOLUME 86.5 fl (80-96); MEAN PLT VOLUME 7.9 fl (7.5-11.1); MONO % 4.7 % (3.8-10.2); NEUT % 75.3 % (42.8-82.8); PLATELET COUNT 229 K/MM3 (134-434); RBC 4.16 M/mm3 (3.60-5.2); RDW 16.3 % (11.6-15.6); WHITE BLOOD COUNT 8.7 K/mm3 (4.0-10.0)
[2020-05-06 13:32] LABS: CHLORIDE 112 mmol/L (98-107); POTASSIUM 3.7 mmol/L (3.5-5.1); SODIUM 143 mmol/L (136-145)
[2020-05-06 13:34] LABS: ALBUMIN 4.3 g/dl (3.4-5.0); ANION GAP 7 MMOL/L (8-16); BLOOD UREA NITROGEN 25.9 mg/dL (7-18); CALCIUM 9.3 mg/dL (8.5-10.1); CO2 24 mmol/L (21-32); GLUCOSE,RANDOM 128 mg/dL (74-106)
[2020-05-06 13:37] LABS: CREATININE 0.6 mg/dL (0.55-1.3); SGOT/AST 32 U/L (15-37); SGPT/ALT 38 U/L (13-61)
[2020-05-06 13:39] LABS: BILIRUBIN,TOTAL 0.7 mg/dL (0.2-1); TOT PROT 7.9 g/dl (6.4-8.2)
[2020-05-06 13:40] LABS: ALK PHOS 73 U/L (45-117)
[2020-05-06] MEDS ORDERED: LACTATED RINGERS SOLUTION 1000 ML INFUS.BAG IV ONE (13:45)
[2020-05-06] MEDS ORDERED: MAG HYDROX/AL HYDROX/SIMETH -MYLANTA- ORAL SUSPENSION PO ONE (13:45)
[2020-05-06] MEDS ORDERED: ONDANSETRON 4 MG/2 ML VIAL IVPUSH ONE (13:45)
[2020-05-06] MEDS ORDERED: FAMOTIDINE 20 MG/50 ML IVPB 20 MG/50 ML MG IVPB ONE ×2 (13:45→14:12)
[2020-05-06] MEDS ORDERED: ONDANSETRON 4 MG/2 ML VIAL ONE (14:12)
[2020-05-06] MEDS ORDERED: MAG HYDROX/AL HYDROX/SIMETH 30 ML UNIT-DOSE CUP ONE (14:12)
[2020-05-06 14:44] LABS: LIPASE 113 U/L (73-393)
[2020-05-06 16:16] VITALS: BP 123/74; PULSE 74; TEMP 98
== END 2020-05-06 16:14 | disposition home or self-care (01) ==
LOC: JER 12:29 → SUPCPDRO 12:29 → JER 16:14
PROC: 3E033NZ Introduction of Analgesics, Hypnotics, Sedatives into Peripheral Vein, Percutaneous Approach (ICD-10-PCS; principal; 2020-05-06)
PROC: 3E033GC Introduction of Other Therapeutic Substance into Peripheral Vein, Percutaneous Approach (ICD-10-PCS; 2020-05-06)
DX: R11.2 Nausea with vomiting, unspecified (principal)
CPT/HCPCS: 36415; 71045-TC-FY; 80053; 82550; 83690; 84484; 85025; 93005; 93010; 99285-25; C9803; U0003

== ENCOUNTER 2021-09-14 20:53 | Inpatient (IN) | payer OTHER, MEDICARE ==
[2021-09-14] MEDS ORDERED: ACETAMINOPHEN 1000 MG/100 ML BAG IVPB ONE (21:14)
[2021-09-14] MEDS ORDERED: PIPERACILLIN/TAZOB 4.5 GM 4.5 GM in DEXTROSE 5%-WATER 100 ML IVPB ONE (21:31)
[2021-09-14] MEDS ORDERED: NITROGLYCERIN 2% OINTMENT - 1GM PACKET TD ONE ×2 (21:31→21:32)
[2021-09-14] MEDS ORDERED: SODIUM CHLORIDE 0.9% 1000 ML INFUS.BAG IV ONE ×2 (21:44→22:36)
[2021-09-14] MEDS ORDERED: ACETAMINOPHEN INJECTION 100 ML IVPB ONE (21:49)
[2021-09-14] MEDS ORDERED: PIPERACILLIN/TAZOB 4.5 GM 4.5 GM/100 ML BAG IVPB ONE (21:50)
[2021-09-14 21:58] LABS: VENOUS BASE EXCESS 0.5 mmol/L (-2-2); VENOUS O2 SATURATION 49.9 % (70-80); VENOUS PCO2 57.2 mmHg (38-52); VENOUS PH 7.307 (7.310-7.410)
[2021-09-14 22:00] LABS: BASO % 0.4 % (0-2.0); EOS % 0.4 % (0-4.5); HEMATOCRIT 36.8 % (32.4-45.2); HEMOGLOBIN 12.3 GM/dL (10.7-15.3); LYMPH % 23.3 % (8-40); MCH 27.3 pg (25.7-33.7); MCHC 33.3 g/dl (32.0-36.0); MEAN CELL VOLUME 82.1 fl (80-96); MEAN PLT VOLUME 8.5 fl (7.5-11.1); MONO % 10.5 % (3.8-10.2); NEUT % 65.4 % (42.8-82.8); PLATELET COUNT 227 10^3/uL (134-434); RBC 4.48 M/mm3 (3.60-5.2); RDW 15.4 % (11.6-15.6); WHITE BLOOD COUNT 8.3 K/mm3 (4.0-10.0)
[2021-09-14 22:07] LABS: INR 3.27 (0.83-1.09); PROTHROMBIN TIME (PATIENT) 38.1 SEC (9.7-13.0)
[2021-09-14 22:10] LABS: ACTIVATED PTT 45.2 SECONDS (25.2-36.5)
[2021-09-14 22:15] LABS: CALCIUM 8.8 mg/dL (8.5-10.1)
[2021-09-14 22:16] LABS: ALBUMIN 3.9 g/dl (3.4-5.0); BLOOD UREA NITROGEN 10.4 mg/dL (7-18)
[2021-09-14 22:19] LABS: CREATININE 0.7 mg/dL (0.55-1.3)
[2021-09-14 22:21] LABS: BILIRUBIN,TOTAL 1.7 mg/dL (0.2-1); TOT PROT 8.2 g/dl (6.4-8.2)
[2021-09-14 22:55] LABS: LACTIC ACID 2.4 mmol/L (0.4-2.0)
[2021-09-14] MEDS ORDERED: AZITHROMYCIN IVPB 500 MG in DEXTROSE 5%-WATER - 250 ML IVPB ONE (23:46)
[2021-09-15] MEDS ORDERED: AZITHROMYCIN IVPB 500 MG/250 ML BAG IVPB ONE (00:33)
[2021-09-15] MEDS ORDERED: METHOTREXATE 2.5 MG TABLET PO SCH (02:45)
[2021-09-15] MEDS ORDERED: DIGOXIN 0.125 MG TABLET ONE (10:52)
[2021-09-15] MEDS ORDERED: FOLIC ACID 1 MG TABLET (FP) ONE (10:53)
[2021-09-15] MEDS ORDERED: FUROSEMIDE 20 MG TABLET (FP) ONE (10:53)
[2021-09-15] MEDS: DIGOXIN 0.125 MG TABLET PO SCH (11:30)
[2021-09-15] MEDS: FOLIC ACID 1 MG TABLET (FP) PO SCH (11:30)
[2021-09-15] MEDS: FUROSEMIDE 20 MG TABLET (FP) PO SCH (11:30)
[2021-09-15 13:40] LABS: ARTERIAL BLD GAS O2 SATURATION 99.5 % (95-98); ARTERIAL BLOOD GAS PO2 205.6 mmHg (80-100); ARTERIAL BLOOD GAS pH 7.465 (7.350-7.450)
[2021-09-15 13:41] LABS: ALLENS TEST POSITIVE
[2021-09-15 13:42] LABS: VENT MODE S/T; VENT RATE 14
[2021-09-15] MEDS ORDERED: ACETAMINOPHEN 325 MG TABLET (FP) PO PRN (16:50)
[2021-09-15] MEDS ORDERED: DEXTROSE 5%-WATER 100 ML IVPB ONE (18:40)
[2021-09-15] MEDS ORDERED: CEFEPIME HCL 1 GM VIAL (RESTRICTED TO ID) ONE (18:40)
[2021-09-15] MEDS: CEFEPIME 1 GM in DEXTROSE 5%-WATER 100 ML IVPB SCH (18:47)
[2021-09-15] MEDS ORDERED: D5-1/2NS+10 MEQ KCL - 10 MEQ/1,000 ML INFUS.BAG IV SCH (22:30)
[2021-09-15] MEDS: MUPIROCIN 2% TOPICAL OINTMENT FOR DECOLONIZATION NS SCH (23:06)
[2021-09-15] MEDS: CHLORHEXIDINE GLUCONATE 4% CLEANSER FOR DECOLONIZATION TP SCH (23:07)
[2021-09-15 23:31] LABS: EPI CELLS 27 /uL (0-25.1); HYALINE CASTS 7 /uL (0-3.1); URINE APPEARANCE CLEAR; URINE BACTERIA 14 /uL (0-1359); URINE BILIRUBIN 1+ (NEGATIVE); URINE COLOR DK YELLOW; URINE GLUCOSE (UA) NEGATIVE (NEGATIVE); URINE KETONE 2+ (NEGATIVE); URINE LEUK ESTERASE 1+ (NEGATIVE); URINE NITRITE NEGATIVE (NEGATIVE); URINE PROTEIN 2+ (NEGATIVE); URINE RBC 603 /uL (0-23.9); URINE WBC 49 /uL (0-25.8)
[2021-09-15] MEDS ORDERED: MIDAZOLAM HCL 5 MG/1 ML Single Dose Vial IVPUSH ONE (23:45)
[2021-09-16] MEDS ORDERED: CEFEPIME HCL 1 GM VIAL (RESTRICTED TO ID) ONE ×3 (01:02→17:26)
[2021-09-16] MEDS ORDERED: DEXTROSE 5%-WATER 100 ML IVPB ONE ×3 (01:02→17:27)
[2021-09-16] MEDS: CEFEPIME 1 GM in DEXTROSE 5%-WATER 100 ML IVPB SCH ×3 (01:21→17:46)
[2021-09-16 06:43] LABS: ARTERIAL BLD GAS O2 SATURATION 75.4 % (95-98); ARTERIAL BLOOD GAS BASE EXCESS 1.5 mmol/L (-2-2); ARTERIAL BLOOD GAS pH 7.427 (7.350-7.450)
[2021-09-16 06:45] LABS: ALLENS TEST POSITIVE; VENT MODE S/T; VENT RATE 14
[2021-09-16 06:47] LABS: ARTERIAL BLOOD GAS PO2 39.2 mmHg (80-100)
[2021-09-16 07:40] LABS: INR 3.24 (0.83-1.09); PROTHROMBIN TIME (PATIENT) 37.7 SEC (9.7-13.0)
[2021-09-16 07:48] LABS: BASO % 0.3 % (0-2.0); EOS % 0.8 % (0-4.5); HEMATOCRIT 30.9 % (32.4-45.2); HEMOGLOBIN 10.3 GM/dL (10.7-15.3); LYMPH % 14.3 % (8-40); MCH 27.4 pg (25.7-33.7); MCHC 33.3 g/dl (32.0-36.0); MEAN CELL VOLUME 82.2 fl (80-96); MEAN PLT VOLUME 8.1 fl (7.5-11.1); MONO % 12.2 % (3.8-10.2); NEUT % 72.4 % (42.8-82.8); PLATELET COUNT 177 10^3/uL (134-434); RBC 3.75 M/mm3 (3.60-5.2); RDW 15.3 % (11.6-15.6); WHITE BLOOD COUNT 8.7 K/mm3 (4.0-10.0)
[2021-09-16 08:06] LABS: CALCIUM 8.2 mg/dL (8.5-10.1)
[2021-09-16 08:07] LABS: BLOOD UREA NITROGEN 10.4 mg/dL (7-18); MAGNESIUM 2.2 mg/dL (1.8-2.4)
[2021-09-16 08:10] LABS: CREATININE 0.5 mg/dL (0.55-1.3); PHOSPHOROUS 1.7 mg/dL (2.5-4.9)
[2021-09-16 08:11] LABS: TOT PROT 6.5 g/dl (6.4-8.2)
[2021-09-16 08:58] VITALS: BMI 22.1
[2021-09-16] MEDS ORDERED: SODIUM PHOSPHATE - 30 MM in DEXTROSE 5%-WATER - 250 ML IVPB ONE (10:00)
[2021-09-16] MEDS: FOLIC ACID 1 MG TABLET (FP) PO SCH (10:46)
[2021-09-16] MEDS: FUROSEMIDE 20 MG TABLET (FP) PO SCH (10:46)
[2021-09-16] MEDS: MUPIROCIN 2% TOPICAL OINTMENT FOR DECOLONIZATION NS SCH ×2 (10:47→21:09)
[2021-09-16] MEDS: METOPROLOL TARTRATE 5 MG/5 ML VIAL IVPUSH PRN ×2 (11:20→20:15)
[2021-09-16] MEDS: DIGOXIN 0.125 MG TABLET PO SCH (11:44)
[2021-09-16] MEDS: CHLORHEXIDINE GLUCONATE 4% CLEANSER FOR DECOLONIZATION TP SCH (21:10)
[2021-09-17] MEDS: METOPROLOL TARTRATE 5 MG/5 ML VIAL IVPUSH PRN (00:17)
[2021-09-17] MEDS ORDERED: CEFEPIME HCL 1 GM VIAL (RESTRICTED TO ID) ONE ×3 (01:08→17:09)
[2021-09-17] MEDS ORDERED: DEXTROSE 5%-WATER 100 ML IVPB ONE ×3 (01:08→17:09)
[2021-09-17] MEDS: CEFEPIME 1 GM in DEXTROSE 5%-WATER 100 ML IVPB SCH ×3 (01:11→17:19)
[2021-09-17] MEDS: DIGOXIN 0.125 MG TABLET PO SCH (09:13)
[2021-09-17] MEDS: MUPIROCIN 2% TOPICAL OINTMENT FOR DECOLONIZATION NS SCH ×2 (09:13→21:37)
[2021-09-17] MEDS: FOLIC ACID 1 MG TABLET (FP) PO SCH (09:13)
[2021-09-17] MEDS: FUROSEMIDE 20 MG TABLET (FP) PO SCH (09:13)
[2021-09-17] MEDS: CHLORHEXIDINE GLUCONATE 4% CLEANSER FOR DECOLONIZATION TP SCH (21:37)
[2021-09-18] MEDS ORDERED: CEFEPIME HCL 1 GM VIAL (RESTRICTED TO ID) ONE ×3 (01:47→17:38)
[2021-09-18] MEDS ORDERED: DEXTROSE 5%-WATER 100 ML IVPB ONE ×3 (01:47→17:38)
[2021-09-18] MEDS: CEFEPIME 1 GM in DEXTROSE 5%-WATER 100 ML IVPB SCH ×3 (01:56→17:46)
[2021-09-18] MEDS: METOPROLOL TARTRATE 5 MG/5 ML VIAL IVPUSH PRN (06:31)
[2021-09-18 08:14] LABS: CALCIUM 9.1 mg/dL (8.5-10.1)
[2021-09-18 08:15] LABS: BLOOD UREA NITROGEN 13.7 mg/dL (7-18)
[2021-09-18 08:16] LABS: CREATININE 0.7 mg/dL (0.55-1.3)
[2021-09-18 08:20] LABS: BASO % 0.5 % (0-2.0); EOS % 1.4 % (0-4.5); HEMATOCRIT 33.6 % (32.4-45.2); HEMOGLOBIN 11.1 GM/dL (10.7-15.3); LYMPH % 33.8 % (8-40); MCH 27.2 pg (25.7-33.7); MEAN CELL VOLUME 82.6 fl (80-96); MEAN PLT VOLUME 8.5 fl (7.5-11.1); MONO % 10.8 % (3.8-10.2); NEUT % 53.5 % (42.8-82.8); PLATELET COUNT 273 10^3/uL (134-434); RBC 4.07 M/mm3 (3.60-5.2); RDW 15.2 % (11.6-15.6); WHITE BLOOD COUNT 10.1 K/mm3 (4.0-10.0)
[2021-09-18] MEDS: MUPIROCIN 2% TOPICAL OINTMENT FOR DECOLONIZATION NS SCH (10:04)
[2021-09-18] MEDS: DIGOXIN 0.125 MG TABLET PO SCH (10:05)
[2021-09-18] MEDS: FOLIC ACID 1 MG TABLET (FP) PO SCH (10:05)
[2021-09-18] MEDS: FUROSEMIDE 20 MG TABLET (FP) PO SCH (10:05)
[2021-09-18 11:32] LABS: MAGNESIUM 2.3 mg/dL (1.8-2.4)
[2021-09-18 11:40] LABS: PHOSPHOROUS 3.5 mg/dL (2.5-4.9)
[2021-09-18] MEDS ORDERED: ACETAMINOPHEN 325 MG TABLET (FP) PO PRN (18:59)
[2021-09-18] MEDS ORDERED: METOPROLOL TARTRATE 5 MG/5 ML VIAL IVPUSH PRN (18:59)
[2021-09-18 19:40] LABS: INR 2.04 (0.83-1.09); PROTHROMBIN TIME (PATIENT) 23.6 SEC (9.7-13.0)
[2021-09-18] MEDS ORDERED: CHLORHEXIDINE GLUCONATE 4% CLEANSER FOR DECOLONIZATION TP SCH (22:00)
[2021-09-18] MEDS ORDERED: MUPIROCIN 2% TOPICAL OINTMENT FOR DECOLONIZATION NS SCH (22:00)
[2021-09-19] MEDS ORDERED: DEXTROSE 5%-WATER 100 ML IVPB ONE ×3 (03:09→17:18)
[2021-09-19] MEDS ORDERED: CEFEPIME HCL 1 GM VIAL (RESTRICTED TO ID) ONE ×3 (03:09→17:18)
[2021-09-19] MEDS: CEFEPIME 1 GM in DEXTROSE 5%-WATER 100 ML IVPB SCH ×3 (03:18→17:22)
[2021-09-19 08:16] LABS: EOS % 1.7 % (0-4.5); HEMATOCRIT 30.5 % (32.4-45.2); HEMOGLOBIN 9.9 GM/dL (10.7-15.3); LYMPH % 29.5 % (8-40); MCH 27.2 pg (25.7-33.7); MCHC 32.6 g/dl (32.0-36.0); MEAN CELL VOLUME 83.4 fl (80-96); MEAN PLT VOLUME 8.1 fl (7.5-11.1); MONO % 12.9 % (3.8-10.2); NEUT % 54.9 % (42.8-82.8); PLATELET COUNT 274 10^3/uL (134-434); RBC 3.66 M/mm3 (3.60-5.2); RDW 15.4 % (11.6-15.6); WHITE BLOOD COUNT 8.2 K/mm3 (4.0-10.0)
[2021-09-19 08:35] LABS: INR 1.75 (0.83-1.09); PROTHROMBIN TIME (PATIENT) 20.2 SEC (9.7-13.0)
[2021-09-19 08:47] LABS: BLOOD UREA NITROGEN 16.6 mg/dL (7-18); CALCIUM 8.7 mg/dL (8.5-10.1)
[2021-09-19 08:50] LABS: CREATININE 0.6 mg/dL (0.55-1.3)
[2021-09-19] MEDS: FUROSEMIDE 20 MG TABLET (FP) PO SCH (09:34)
[2021-09-19] MEDS: DIGOXIN 0.125 MG TABLET PO SCH (09:35)
[2021-09-19] MEDS: FOLIC ACID 1 MG TABLET (FP) PO SCH (09:35)
[2021-09-20] MEDS ORDERED: CEFEPIME HCL 1 GM VIAL (RESTRICTED TO ID) ONE ×3 (02:18→17:30)
[2021-09-20] MEDS ORDERED: DEXTROSE 5%-WATER 100 ML IVPB ONE ×3 (02:19→17:30)
[2021-09-20] MEDS: CEFEPIME 1 GM in DEXTROSE 5%-WATER 100 ML IVPB SCH ×3 (02:30→17:45)
[2021-09-20] MEDS: FOLIC ACID 1 MG TABLET (FP) PO SCH (09:18)
[2021-09-20] MEDS: DIGOXIN 0.125 MG TABLET PO SCH (09:19)
[2021-09-20] MEDS: FUROSEMIDE 20 MG TABLET (FP) PO SCH (09:19)
[2021-09-20] MEDS ORDERED: FUROSEMIDE 40 MG/4 ML INJECTABLE VIAL IVPUSH ONE (12:30)
[2021-09-20] MEDS ORDERED: metoPROLOL SUCCINATE 25 MG TAB.SR.24H (FP) PO ONE (14:08)
[2021-09-20 15:29] LABS: INR 1.45 (0.83-1.09); PROTHROMBIN TIME (PATIENT) 16.7 SEC (9.7-13.0)
[2021-09-20] MEDS ORDERED: metoPROLOL SUCCINATE 25 MG TAB.SR.24H (FP) ONE (21:14)
[2021-09-20] MEDS: METOPROLOL SUCCINATE 100 MG, METOPROLOL SUCCINATE 25 MG PO SCH (21:15)
[2021-09-21] MEDS: CEFEPIME 1 GM in DEXTROSE 5%-WATER 100 ML IVPB SCH ×3 (02:45→17:09)
[2021-09-21] MEDS ORDERED: CEFEPIME HCL 1 GM VIAL (RESTRICTED TO ID) ONE ×3 (02:46→17:03)
[2021-09-21] MEDS ORDERED: DEXTROSE 5%-WATER 100 ML IVPB ONE ×3 (02:46→17:03)
[2021-09-21 06:58] LABS: BASO % 1.1 % (0-2.0); EOS % 1.4 % (0-4.5); HEMATOCRIT 32.4 % (32.4-45.2); HEMOGLOBIN 10.4 GM/dL (10.7-15.3); LYMPH % 29.7 % (8-40); MCH 27.4 pg (25.7-33.7); MCHC 32.1 g/dl (32.0-36.0); MEAN CELL VOLUME 85.6 fl (80-96); MEAN PLT VOLUME 7.6 fl (7.5-11.1); NEUT % 60.8 % (42.8-82.8); PLATELET COUNT 342 10^3/uL (134-434); RBC 3.79 M/mm3 (3.60-5.2); RDW 15.6 % (11.6-15.6); WHITE BLOOD COUNT 11.8 K/mm3 (4.0-10.0)
[2021-09-21 07:06] LABS: INR 1.35 (0.83-1.09); PROTHROMBIN TIME (PATIENT) 15.6 SEC (9.7-13.0)
[2021-09-21 07:29] LABS: CALCIUM 8.8 mg/dL (8.5-10.1)
[2021-09-21 07:32] LABS: CREATININE 0.7 mg/dL (0.55-1.3)
[2021-09-21] MEDS ORDERED: FUROSEMIDE 40 MG/4 ML INJECTABLE VIAL IVPUSH ONE (09:53)
[2021-09-21] MEDS ORDERED: metoPROLOL SUCCINATE 25 MG TAB.SR.24H (FP) ONE ×2 (10:05→19:48)
[2021-09-21] MEDS: FOLIC ACID 1 MG TABLET (FP) PO SCH (10:12)
[2021-09-21] MEDS: DIGOXIN 0.125 MG TABLET PO SCH (10:13)
[2021-09-21] MEDS: METOPROLOL SUCCINATE 100 MG, METOPROLOL SUCCINATE 25 MG PO SCH ×2 (10:13→21:15)
[2021-09-21] MEDS ORDERED: levETIRAcetam 500 MG/5 ML INJECTION VIAL IVPB ONE (12:16)
[2021-09-21] MEDS ORDERED: AMIODARONE IN DEXTROSE,ISO-OSM 360 MG/200 ML BAG IV SCH (14:45)
[2021-09-21] MEDS ORDERED: AMIODARONE IN DEXTROSE,ISO-OSM 150 MG/100 ML BAG IVPB ONE (14:45)
[2021-09-21] MEDS ORDERED: AMIODARONE HCL 150 MG/3 ML VIAL IVPB ONE (15:15)
[2021-09-21] MEDS ORDERED: PIPERACILLIN/TAZOBACTAM 3.375 GM VIAL IVPB ONE (18:18)
[2021-09-21] MEDS ORDERED: DEXTROSE 5%-WATER - 50 ML IVPB ONE (18:19)
[2021-09-21] MEDS: PIPERACILLIN/TAZOB 3.375 GM 3.375 GM in DEXTROSE 5%-WATER - 50 ML IVPB SCH (18:22)
[2021-09-21] MEDS: AMIODARONE IN DEXTROSE,ISO-OSM 360 MG/200 ML BAG IV SCH (21:56)
[2021-09-22] MEDS ORDERED: DEXTROSE 5%-WATER - 50 ML IVPB ONE ×3 (00:28→16:37)
[2021-09-22] MEDS ORDERED: PIPERACILLIN/TAZOBACTAM 3.375 GM VIAL IVPB ONE ×3 (00:28→16:36)
[2021-09-22] MEDS: PIPERACILLIN/TAZOB 3.375 GM 3.375 GM in DEXTROSE 5%-WATER - 50 ML IVPB SCH ×3 (01:02→17:07)
[2021-09-22] MEDS ORDERED: metoPROLOL SUCCINATE 25 MG TAB.SR.24H (FP) ONE ×2 (10:11→21:29)
[2021-09-22] MEDS: FOLIC ACID 1 MG TABLET (FP) PO SCH (10:21)
[2021-09-22] MEDS: METOPROLOL SUCCINATE 100 MG, METOPROLOL SUCCINATE 25 MG PO SCH ×2 (10:21→22:00)
[2021-09-22] MEDS: FUROSEMIDE 20 MG TABLET (FP) PO SCH (10:21)
[2021-09-22] MEDS: DIGOXIN 0.125 MG TABLET PO SCH (10:21)
[2021-09-22] MEDS: AMIODARONE IN DEXTROSE,ISO-OSM 360 MG/200 ML BAG IV SCH ×3 (11:04→23:11)
[2021-09-23] MEDS ORDERED: DEXTROSE 5%-WATER - 50 ML IVPB ONE ×3 (01:11→16:42)
[2021-09-23] MEDS ORDERED: PIPERACILLIN/TAZOBACTAM 3.375 GM VIAL IVPB ONE ×3 (01:11→16:41)
[2021-09-23] MEDS: PIPERACILLIN/TAZOB 3.375 GM 3.375 GM in DEXTROSE 5%-WATER - 50 ML IVPB SCH ×3 (01:23→17:08)
[2021-09-23 08:21] LABS: BASO % 1.2 % (0-2.0); EOS % 3.2 % (0-4.5); HEMATOCRIT 32.1 % (32.4-45.2); HEMOGLOBIN 10.6 GM/dL (10.7-15.3); MCH 28.7 pg (25.7-33.7); MEAN CELL VOLUME 86.9 fl (80-96); MEAN PLT VOLUME 7.9 fl (7.5-11.1); NEUT % 63.6 % (42.8-82.8); PLATELET COUNT 319 10^3/uL (134-434); RBC 3.69 M/mm3 (3.60-5.2); RDW 15.4 % (11.6-15.6)
[2021-09-23 08:38] LABS: CALCIUM 9.1 mg/dL (8.5-10.1)
[2021-09-23 08:39] LABS: BLOOD UREA NITROGEN 14.3 mg/dL (7-18)
[2021-09-23 08:42] LABS: CREATININE 0.9 mg/dL (0.55-1.3)
[2021-09-23] MEDS ORDERED: metoPROLOL SUCCINATE 25 MG TAB.SR.24H (FP) ONE ×2 (09:48→21:10)
[2021-09-23 10:03] LABS: ERYTHROCYTE SEDIMENTATION RATE 62 mm/hr (0-30)
[2021-09-23] MEDS: FOLIC ACID 1 MG TABLET (FP) PO SCH (10:10)
[2021-09-23] MEDS: METOPROLOL SUCCINATE 100 MG, METOPROLOL SUCCINATE 25 MG PO SCH ×2 (10:10→21:21)
[2021-09-23] MEDS: FUROSEMIDE 20 MG TABLET (FP) PO SCH (10:10)
[2021-09-23] MEDS: AMIODARONE IN DEXTROSE,ISO-OSM 360 MG/200 ML BAG IV SCH ×2 (11:25→23:40)
[2021-09-23] MEDS: ENOXAPARIN NA (PORCINE) 60 MG/0.6 ML DISP.SYRIN SQ SCH ×2 (14:57→21:22)
[2021-09-23 16:27] LABS: INR 1.28 (0.83-1.09); PROTHROMBIN TIME (PATIENT) 14.8 SEC (9.7-13.0)
[2021-09-24] MEDS: AMIODARONE IN DEXTROSE,ISO-OSM 360 MG/200 ML BAG IV SCH ×2 (00:12→12:35)
[2021-09-24] MEDS ORDERED: PIPERACILLIN/TAZOBACTAM 3.375 GM VIAL IVPB ONE ×2 (00:48→09:42)
[2021-09-24] MEDS ORDERED: DEXTROSE 5%-WATER - 50 ML IVPB ONE ×2 (00:48→09:43)
[2021-09-24] MEDS: PIPERACILLIN/TAZOB 3.375 GM 3.375 GM in DEXTROSE 5%-WATER - 50 ML IVPB SCH ×2 (01:54→10:43)
[2021-09-24 07:08] LABS: BASO % 0.7 % (0-2.0); EOS % 2.4 % (0-4.5); HEMATOCRIT 32.4 % (32.4-45.2); HEMOGLOBIN 10.6 GM/dL (10.7-15.3); LYMPH % 25.3 % (8-40); MCHC 32.7 g/dl (32.0-36.0); MEAN CELL VOLUME 85.6 fl (80-96); MEAN PLT VOLUME 7.9 fl (7.5-11.1); MONO % 7.8 % (3.8-10.2); NEUT % 63.8 % (42.8-82.8); PLATELET COUNT 318 10^3/uL (134-434); RBC 3.79 M/mm3 (3.60-5.2); RDW 15.8 % (11.6-15.6); WHITE BLOOD COUNT 9.3 K/mm3 (4.0-10.0)
[2021-09-24 07:22] LABS: CALCIUM 8.8 mg/dL (8.5-10.1)
[2021-09-24 07:26] LABS: CREATININE 0.9 mg/dL (0.55-1.3)
[2021-09-24] MEDS ORDERED: metoPROLOL SUCCINATE 25 MG TAB.SR.24H (FP) ONE (09:40)
[2021-09-24] MEDS: ENOXAPARIN NA (PORCINE) 60 MG/0.6 ML DISP.SYRIN SQ SCH ×2 (10:19→21:54)
[2021-09-24] MEDS: DIGOXIN 0.125 MG TABLET PO SCH (10:22)
[2021-09-24] MEDS: METOPROLOL SUCCINATE 100 MG, METOPROLOL SUCCINATE 25 MG PO SCH ×2 (10:22→21:53)
[2021-09-24] MEDS: FOLIC ACID 1 MG TABLET (FP) PO SCH (10:22)
[2021-09-24] MEDS: FUROSEMIDE 20 MG TABLET (FP) PO SCH (10:22)
[2021-09-24] MEDS: AMOX TR/POT CLAV 875MG/125MG TABLETS (FP) PO SCH (17:29)
[2021-09-24] MEDS ORDERED: metoPROLOL SUCCINATE 25 MG TAB.SR.24H (FP) PO ONE (21:19)
[2021-09-25] MEDS: AMIODARONE IN DEXTROSE,ISO-OSM 360 MG/200 ML BAG IV SCH ×3 (00:10→12:12)
[2021-09-25 06:48] LABS: BASO % 0.8 % (0-2.0); EOS % 1.6 % (0-4.5); HEMATOCRIT 32.1 % (32.4-45.2); HEMOGLOBIN 10.3 GM/dL (10.7-15.3); MCH 28.1 pg (25.7-33.7); MCHC 32.2 g/dl (32.0-36.0); MEAN CELL VOLUME 87.1 fl (80-96); MEAN PLT VOLUME 8.1 fl (7.5-11.1); MONO % 8.8 % (3.8-10.2); NEUT % 60.8 % (42.8-82.8); PLATELET COUNT 282 10^3/uL (134-434); RBC 3.68 M/mm3 (3.60-5.2); WHITE BLOOD COUNT 7.9 K/mm3 (4.0-10.0)
[2021-09-25 06:54] LABS: INR 1.21 (0.83-1.09)
[2021-09-25 07:32] LABS: CALCIUM 8.6 mg/dL (8.5-10.1)
[2021-09-25 07:35] LABS: BLOOD UREA NITROGEN 11.6 mg/dL (7-18)
[2021-09-25 07:36] LABS: CREATININE 0.8 mg/dL (0.55-1.3)
[2021-09-25] MEDS: AMOX TR/POT CLAV 875MG/125MG TABLETS (FP) PO SCH ×2 (08:02→17:38)
[2021-09-25] MEDS ORDERED: metoPROLOL SUCCINATE 25 MG TAB.SR.24H (FP) PO ONE ×2 (09:08→22:07)
[2021-09-25] MEDS: METOPROLOL SUCCINATE 100 MG, METOPROLOL SUCCINATE 25 MG PO SCH ×2 (09:32→22:11)
[2021-09-25] MEDS: FUROSEMIDE 20 MG TABLET (FP) PO SCH (09:33)
[2021-09-25] MEDS: FOLIC ACID 1 MG TABLET (FP) PO SCH (09:33)
[2021-09-25] MEDS: ENOXAPARIN NA (PORCINE) 60 MG/0.6 ML DISP.SYRIN SQ SCH ×2 (09:39→22:11)
[2021-09-26] MEDS ORDERED: metoPROLOL SUCCINATE 25 MG TAB.SR.24H (FP) PO ONE (08:45)
[2021-09-26] MEDS: AMOX TR/POT CLAV 875MG/125MG TABLETS (FP) PO SCH ×2 (09:27→16:59)
[2021-09-26] MEDS: DIGOXIN 0.125 MG TABLET PO SCH (10:19)
[2021-09-26] MEDS: FOLIC ACID 1 MG TABLET (FP) PO SCH (10:19)
[2021-09-26] MEDS: METOPROLOL SUCCINATE 100 MG, METOPROLOL SUCCINATE 25 MG PO SCH (10:19)
[2021-09-26] MEDS: FUROSEMIDE 20 MG TABLET (FP) PO SCH (10:19)
[2021-09-26] MEDS: ENOXAPARIN NA (PORCINE) 60 MG/0.6 ML DISP.SYRIN SQ SCH (10:20)
[2021-09-26] MEDS: AMIODARONE IN DEXTROSE,ISO-OSM 360 MG/200 ML BAG IV SCH (13:28)
[2021-09-26 14:49] VITALS: PULSE 67
[2021-09-26] MEDS ORDERED: AMIODARONE HCL 200 MG TABLET PO SCH (15:15)
[2021-09-26 18:16] VITALS: BP 120/70; TEMP 98.3
== END 2021-09-26 19:28 | disposition home or self-care (01) | DRG 871 ==
LOC: JER 20:53 → JERBED 21:52 → JICU 09-15 15:35 → J4W 09-18 18:56
PROVIDERS: ADMIT Hospitalist; ATTEND Internal Medicine
DX: A41.9 Sepsis, unspecified organism (principal); J18.9 Pneumonia, unspecified organism; J96.01 Acute respiratory failure with hypoxia; E87.2 Acidosis; I50.32 Chronic diastolic (congestive) heart failure; M06.9 Rheumatoid arthritis, unspecified; I10 Essential (primary) hypertension; E78.5 Hyperlipidemia, unspecified
CPT/HCPCS: 0241U-QW; 36415; 36600; 71045-TC-FY; 71250-TC; 80048; 80053; 80061; 80162; 81003; 82803; 83036; 83605; 83615; 83735; 83880; 84100; 84484; 85025; 85610; 85651; 85730; 86140; 86480; 86850; 86900; 86901; 87040; 87070; 87077; 87086; 87205; 87899; 93005; 93010; 93306-TC; 94660; 97116-GP; 97162-GP; 99285-25; C9803-CS; U0003; U0005